=== PATIENT | male | born 1950 | race African-American/Black ===

== ENCOUNTER 2022-03-16 08:14 | Outpatient (CLI) | payer MEDICARE, SELFPAY ==
--- NOTE | ~2022-03-16 | CT_ITS ---
EXAMINATION: CT abdomen pelvis w con DATE: 03/16/2022 08:53 INDICATION: Prostate cancer. TECHNIQUE: Computed tomography (CT) of the abdomen and pelvis was performed with 100 mL Omnipaque 350 intravenous contrast. Automated exposure control and iterative reconstruction technique were employe d. The dose-length product was 324.98 mGy-cm. COMPARISON: None. FINDINGS: The visualized portions of the lung bases demonstrate minimal atelectasis. There are small bilateral posterior diaphragmatic hernias containing fat. No pleural effusion. The heart size is norm al. No pericardial effusion. There are cysts in the liver measuring up to 5 mm. The gallbladder, sple en, pancreas, and adrenal glands are normal. There are cysts in the kidneys measuring up to 4 mm on t he right. There is prominent fat in the inguinal canals that may be hernias. The prostate is moderate ly enlarged. There is diverticulosis of the colon without evidence of diverticulitis. There are no di lated loops of bowel. The appendix is normal. There are no pathologically enlarged lymph nodes. There is no free intraperitoneal fluid. There are subcentimeter nonaggressive lytic lesions with sclerotic margins in the iliac bones, likely benign. There is severe lumbar spondylosis. IMPRESSION: 1. No evidence of metastatic disease. Reviewed, dictated and finalized at location A. T MANAGER
--- NOTE | ~2022-03-16 | NM_ITS ---
EXAMINATION: NM bone scan whole body DATE: 03/16/2022 13:31 INDICATION: Prostate cancer. TECHNIQUE: 23.8 mCi Tc-99m HDP was administered intravenously. Delayed whole-body scintigrams were o btained. COMPARISON: CT abdomen and pelvis 03/16/2022 FINDINGS: There is joint-centered increased activity in the acromioclavicular joints and sternoclavic ular joints, likely osteoarthritis. IMPRESSION: 1. No evidence of metastatic disease. Reviewed, dictated and finalized at location A. TORIAL MANAGER
[2022-03-16 08:49] LABS: Estimated Glomerular Filt Rate > 60
== END 2022-03-16 08:15 | disposition home or self-care (01) ==
PROVIDERS: PCP Internal Medicine; Visit Provider Urology
DX: C61 Malignant neoplasm of prostate (principal)
CPT/HCPCS: 74177; 78306; A9561; Q9967

== ENCOUNTER 2025-03-25 22:41 | Observation (INO) | payer MEDICARE, SELFPAY ==
--- NOTE | ~2025-03-25 | MR_ITS ---
EXAMINATION: Modified brain with and without contrast: DATE: 03/26/2025 INDICATION: 74 year-old with seizure. TECHNIQUE: Axial, coronal and sagittal images including postcontrast images with 10 mL IV contrast were obtained. COMPARISON: CT head without contrast dated 03/26/2025. FINDINGS: No focal areas of acute ischemia on diffusion sequence. No evidence of intracranial bleed on T2*gradient sequence. No evidence of ventriculomegaly or midline shift. Major vascular structures of elim ira of [place] are patent. No abnormal enhancement on postcontrast study. Normal pituitary gland. Inflammatory changes of ethmoid and frontal sinuses and to a lesser degree maxillary sinuses history rule out sinusitis. IMPRESSION: 1. No evidence of acute ischemia, chronic ischemic demyelinating lesions. 2. No abnormal enhancement. No evidence of ventriculomegaly or midline shift. 3. Moderate inflammatory changes of multiple sinuses on both sides. Reviewed, dictated and finalized at location T. RED CAR DRIVER
--- NOTE | ~2025-03-25 | CT_ITS ---
CT HEAD NON-CONTRAST Clinical History: seizures Comparison: None Technique: Unenhanced axial images skull base to vertex Coronal, sagittal reformats CT images acquired with automatic exposure control for dose reduction DLP: 681 mGy-cm Findings: Sulci, ventricles: Unremarkable. No intracerebral hemorrhage. No evidence acute territorial infarct. No mass effect, midline shift. Bony calvarium intact. Visualized paranasal sinuses: Mild maxillary mucosal thickening. Mild ethmoid disease. Mastoid air cells: Clear. IMPRESSION: 1. No acute intracranial findings. Reviewed, dictated and finalized at location R. ER CLEANER
--- NOTE | 2025-03-25 22:42 | ECG_ITS ---
Test Date: 2025-03-25 22:58:38 Measurements Intervals [place] Rate: 70 P: 56 CA: 237 QRS: 6 QRSD: 88 T: 42 QT: 361 QTc: 390 Interpretive Statements SINUS RHYTHM WITH FIRST DEGREE AV BLOCK OTHERWISE NORMAL ECG No previous ECG available for comparison Electronically Signed On 03-26-2025 11:22:43 DELPHI DEVELOPER by Mat Bernal M.D.
[2025-03-25 22:43] VITALS: BP 112/72; PULSE 84; RESP 15; TEMP 36.6; O2SAT 98
--- NOTE | 2025-03-25 23:20 | PC.NURSE ---
Pt informed and aware of urine sample needed and urinal at bedside.
[2025-03-25 23:27] LABS: Hematocrit 45.5 % (42.0-52.0); Hemoglobin 14.6 g/dL (14.0-18.0); Immature Granulocyte Percent A 0.5 % (0-0.5); Lymphocytes Absolute Auto 0.61 K/mm3 (0.9-3.2); Mean Corpuscular HGB Conc 32.1 g/dl (32-36); Mean Corpuscular Hemoglobin 28.2 pg (26-34); Mean Corpuscular Volume 87.8 fl (80-100); Nucleated Red Blood Cells Absolute Auto 0.000 K/mm3 (0.0-0.012); Nucleated Red Blood Cells Perc 0.0 % (0.0-0.2); Platelet Count Result 192 k/mm3 (150-375); Red Blood Count 5.18 M/mm3 (4.6-6.20); White Blood Count 4.4 K/mm3 (4.5-10.0)
[2025-03-25 23:39] LABS: INR 1.1; Partial Thromboplastin Time 25.0 Seconds (22.3-36.8); Prothrombin Time 14.2 Seconds (11.1-14.7)
[2025-03-26] VITALS (10 sets, daily range): BP systolic 97–135; BP diastolic 54–71; PULSE 55–93; RESP 15–20; TEMP 36.6–36.8; O2SAT 98–100; BMI 22.9
[2025-03-26 00:02] LABS: Alanine Aminotransferase 30 U/L (6-50); Albumin Level 3.9 g/dL (3.5-5.1); Alkaline Phosphatase 88 U/L (38-126); Anion Gap 7 mmol/L (4-12); Aspartate Amino Transferase 41 U/L (17-59); Bilirubin,Total 0.6 mg/dL (0.2-1.3); Blood Urea Nitrogen 17 mg/dL (9-20); Calcium 9.7 mg/dL (8.4-10.2); Carbon Dioxide 24 mmol/L (22-30); Chloride 105 mmol/L (98-107); Estimated CRCL calculation 49 ml/min; Estimated Glomerular Filt Rate 54; Glucose 129 mg/dL (65-110); Potassium 3.9 mmol/L (3.4-5.0); Sodium 136 mmol/L (137-145); Total Protein 7.3 g/dL (6.3-8.2)
--- NOTE | 2025-03-26 00:07 | PC.NURSE ---
Pt experienced an estimated 30 second seizure at this time. Tech and RN were present in room and turned pt on side. Pt was suctioned for secretions post-seizure. Seizure pads applied.
[2025-03-26 00:15] LABS: Add Urine Microscopic? YES; Appearance Urine Clear (Clear); Glucose Urine UA Negative (Negative); Leukocyte Esterase Ur Negative LEU/UL (Negative); Need Manual Microscopic Reviewed; Nitrate Urine Negative (Negative); Specific Grav Ur 1.027 (1.001-1.035)
--- NOTE | 2025-03-26 00:25 | ED.AMS ---
HPI - Altered Mental Status General Chief Complaint: Altered Mental Status Stated Complaint: AMS, NOW RESOLVED Time Seen by Provider: 03/26/25 00:09 History of Present Illness HPI narrative: 74-year-old male with history of hypertension and hyperlipidemia presenting to the emergency department today after having a witnessed seizure event. Patient has no history of seizures and no reported recent trauma or injury. No recent illnesses. Patient went to bed and his found him grunting and making odd noises not responding or not waking up. Patient was during his extremities and drooling significantly. EMS found him postictal upon arrival no longer seizing. Patient return to normal consciousness alert oriented x4 but had some garbled speech that also slowly resolved. Patient does not remember what happened. States that he was feeling fine before he went to bed. No recent illnesses fever or chills. Patient denies any complaints at this time. Patient had a subsequent seizure after about 90 minutes here in the emergency that was aborted spontaneously. Patient has had a total of 3 seizures with return of mentation between each episode and each episode did not last more than seconds. Related Data Home Medications ?Medication ?Instructions ?Recorded ?Confirmed ?Last Taken ?Type brimonidine 0.2 % eye drops 1 drp EACH EYE Q8H 03/25/25 03/25/25 Unknown History doxazosin 4 mg tablet (Cardura) 4 mg PO DAILY 03/25/25 03/25/25 Unknown History metoprolol succinate 50 mg 50 mg PO DAILY 03/25/25 03/25/25 Unknown History tablet,extended release 24 hr rosuvastatin 10 mg tablet 10 mg PO DAILY 03/25/25 03/25/25 Unknown History Allergies Allergy/AdvReac Type Severity Reaction Status Date / Time No Known Allergies Allergy Verified 03/25/25 22:53 Review of Systems Review of Systems: As reviewed above in HPI Exam Narrative: GENERAL: [Well-appearing, well-nourished, and in no acute distress.] HEAD: [Normocephalic, atraumatic.] EYES: [PERRLA and EOMI.] ENT: Nares clear, no rhinorrhea or epistaxis. Mucous membranes moist. NECK: Supple. CHEST: [Clear to auscultation. No respiratory distress.] HEART: [Regular rate and rhythm]. No murmur heard. [Normal peripheral pulses.] ABDOMEN: [Soft, nondistended], [nontender], [No rigidity or guarding] EXTREMITIES: Normal range of motion. [No edema.] SKIN: Warm, dry, no rash. NEURO: [No focal deficits]. Alert and oriented [x3.] PSYCH: [Normal mood and affect.] Course Vital Signs Vital signs: Vital Signs Temperature 36.6 C 03/25/25 22:43 Pulse Rate 84 03/25/25 22:43 Respiratory Rate 15 03/25/25 22:43 Blood Pressure 112/72 03/25/25 22:43 Pulse Oximetry 98 03/25/25 22:43 Oxygen Delivery Room Air 03/25/25 22:43 Temperature 36.6 C 03/25/25 22:43 Pulse Rate 93 03/26/25 00:16 Respiratory Rate 17 03/26/25 00:16 Blood Pressure 97/54 L 03/26/25 00:16 Pulse Oximetry 98 03/26/25 00:16 Oxygen Delivery Room Air 03/26/25 00:15 MDM - Altered Mental Status MDM Narrative Medical decision making narrative: 74-year-old male with history of hypertension and hyperlipidemia presenting to the emergency department today after having a witnessed seizure event. Patient has no history of seizures and no reported recent trauma or injury. No recent illnesses. Patient went to bed and his found him grunting and making odd noises not responding or not waking up. Patient was during his extremities and drooling significantly. EMS found him postictal upon arrival no longer seizing. Patient return to normal consciousness alert oriented x4 but had some garbled speech that also slowly resolved. Patient does not remember what happened. States that he was feeling fine before he went to bed. No recent illnesses fever or chills. Patient denies any complaints at this time. Patient had a subsequent seizure after about 90 minutes here in the emergency that was aborted spontaneously. Patient has had a total of 3 seizures with return of mentation between each episode and each episode did not last more than seconds. Patient is hemodynamically stable. Was ambulatory and able to give a urine sample. Had no complaints and then had a visualized seizure which aborted spontaneously. No trauma to the head. Hemodynamically still remained stable but required some suctioning as he was gurgling. Now postictal on withdrawing to pain. CT of the head ordered as well as broad laboratory studies and toxicological screenings. Patient given 4500mg of Keppra IV and 2 of Versed IV. Given a fluid bolus and placed on events solutions consultant with seizure precautions. Suspect potential intracranial pathology such as a mass or bleeding versus electrolyte imbalances versus infection less likely given he is afebrile with no previous recent complaints or infectious symptoms. CT scan returned unremarkable. Patient coming around after his seizure and was able to answer questions. Vital signs remained stable. Laboratory studies unremarkable. Urinalysis unremarkable. This time we have no focal finding to lead towards patient's presentation today with seizure but he does not have status epilepticus given his return to baseline between episodes and no prolonged seizures. Spoke to Dr. Ferris the neurologist who recommended obtaining an EEG and an MRI of the brain with and without contrast and will see the patient during his admission. Spoke to the hospitalist and patient was accepted to the IMU at this time for continued care. Patient did receive large dose of Keppra and Versed but additional as needed Versed ordered p.r.n. if he has additional seizures. Medical Records Attestation: I reviewed the patient's medical records. Lab Data Attestation: I reviewed the patient's lab results. 03/25/25 23:18 03/25/25 23:18 Labs: Lab Results 03/25/25 03/25/25 03/26/25 Range/Units 23:18 23:51 01:31 WBC 4.4 L (4.5-10.0) K/mm3 RBC 5.18 (4.6-6.20) M/mm3 Hgb 14.6 (14.0-18.0) g/dL Hct 45.5 (42.0-52.0) % MCV 87.8 (80-100) fl MCH 28.2 (26-34) pg MCHC 32.1 (32-36) g/dl RDW 13.3 (11.5-14.5) % Plt Count 192 (150-375) k/mm3 MPV 9.8 (7.4-10.4) fl Immature Gran % (Auto) 0.5 (0-0.5) % Neut % (Auto) 75.4 H (45.5-73.1) % Lymph % (Auto) 14.0 L (18.3-44.2) % Bibb % (Auto) 7.8 (2.6-8.5) % Eos % (Auto) 1.4 (0-4.4) % Baso % (Auto) 0.9 (0.2-1.2) % Lymph # (Auto) 0.61 L (0.9-3.2) K/mm3 Bibb # (Auto) 0.3 (0.1-0.6) K/mm3 Eos # (Auto) 0.1 (0-0.3) K/mm3 Baso # (Auto) 0.0 (0.0-0.1) K/mm3 Abs Immat Gran (auto) 0.02 (0.00-0.031) K/mm3 Absolute Neuts (auto) 3.3 (1.3-6.7) K/mm3 Absolute Nucleated RBC 0.000 (0.0-0.012) K/mm3 Nucleated RBC % 0.0 (0.0-0.2) % PT 14.2 (11.1-14.7) Seconds INR 1.1 APTT 25.0 (22.3-36.8) Seconds Sodium 136 L (137-145) mmol/L Potassium 3.9 (3.4-5.0) mmol/L Chloride 105 (98-107) mmol/L Carbon Dioxide 24 (22-30) mmol/L Anion Gap 7 (4-12) mmol/L BUN 17 (9-20) mg/dL Creatinine 1.30 (0.7-1.3) mg/dL Estim Creat Clear Calc 49 ml/min Estimated GFR 54 L (59 - ) Glucose 129 H (65-110) mg/dL Lactic Acid 2.3 H (0.7-2.0) mmol/L Calcium 9.7 (8.4-10.2) mg/dL Total Bilirubin 0.6 (0.2-1.3) mg/dL AST 41 (17-59) U/L ALT 30 (6-50) U/L Alkaline Phosphatase 88 (38-126) U/L Total Protein 7.3 (6.3-8.2) g/dL Albumin 3.9 (3.5-5.1) g/dL Urine Color Yellow (Yellow) Urine Appearance Clear (Clear) Urine pH 5.5 (5.0-9.0) Ur Specific [place] 1.027 (1.001-1.035) Urine Protein 2+ H (Negative) mg/dL Urine Glucose (UA) Negative (Negative) mg/dL Urine Ketones Trace H (Negative) mg/dL Ur Blood (Man) Negative (Negative) Urine Nitrate Negative (Negative) Urine Bilirubin Negative (Negative) Urine Urobilinogen 1.0 (<2.0) mg/dL Add Ur Microanalysis Reviewed Leukocyte Esterase Rfl Negative (Negative) JENNIFER/UL Urine RBC 6-10 H (0-2) /hpf Urine WBC 0-5 (0-3) /hpf Ur Squamous Epith Cells Occasional (Few) /hpf Urine Bacteria None seen /hpf Urine Casts 11-20 Hyaline Casts Present (None) /lpf Salicylates < 1.0 L (2-20) mg/dL Urine Opiates Screen Negative (Negative) Urine Methadone Screen Negative (Negative) Acetaminophen < 10 L (10-30) ug/mL Ur Barbiturates Screen Negative (Negative) Ur Phencyclidine Scrn Negative (Negative) Ur Amphetamine Screen Negative (Negative) U Benzodiazepines Scrn Negative (Negative) Urine Cocaine Screen Negative (Negative) U Cannabinoids Screen Negative (Negative) Ethyl Alcohol < 10 (<10) mg/dL Imaging Data Attestation: I personally reviewed and interpreted this imaging study as follows: My impression: CT of the head unremarkable. Critical Care Time Critical Care Time Critical Care Time: Yes Total Critical Care Time: 35 Discharge Plan Discharge Clinical Impression: First time seizure, Altered mental status Patient Disposition: Still a Patient Condition: Stable
[2025-03-26 00:30] LABS: Acetaminophen < 10 ug/mL (10-30); Salicylate < 1.0 mg/dL (2-20)
[2025-03-26] MEDS: levETIRAcetam 1500MG/NACL100ML 1,500 MG/100 ML BAG 600 MG IVPB ×3 (00:41→00:42)
--- NOTE | 2025-03-26 00:42 | PC.NURSE ---
PCP verbally ordered keppra bags to be rapidly given by squeezing bags.
[2025-03-26] MEDS: SODIUM CHLORIDE 0.9% IV 1,000 ML 999 ML (00:43)
[2025-03-26] MEDS: MIDAZOLAM HCL (*CRX) 2 MG/2 ML VIAL IV PUSH (00:43)
[2025-03-26 00:46] LABS: Cannabinoid Screen Urine Negative (Negative)
--- OUTSIDE RECORDS SUMMARY | 2025-03-26 00:46 | XMS_ITS | Data Portability ---
Author Organization [facility] [place] [facility] [employer] Address [address] [address] Care Team Providers Care Veterinary Bacteriologist Name Role Phone LEENA PHAN Communications Planner Assessment Encounter Date Assessment Date Assessment LastModified by Organization Details LastModified Time 10/15/2022 10/15/2022 Patient presente d for follow up. Studies ordered as below. Discussed plan with patient/caregiver , who expressed understanding. Follow up as noted below. [email or web address] Not available 10/15/2022 11:55:44 11/01/2023 11/01/2023 Patient presente d for follow up. Studies ordered as below. Discussed plan with patient/caregiver , who expressed understanding. Follow up as noted below. [email or web address] Not available 11/01/2023 09:18:37 05/08/2024 05/08/2024 Recommends healthy nutrition, including a diet rich in fruits and vegetables, minimizing simple carbohydrates, salt, and saturated fats. Encouraged regular cardiovascular exercise such as walking at least 30 minutes daily, 5 times per week. Emphasized preventive health measures and educated pt on fall prevention and community-based lifestyle interventions to help reduce health risks and promote healthy living. Not available 05/08/2024 10:08:31 11/05/2024 11/05/2024 Recommends healthy nutrition, including a diet rich in fruits and vegetables, minimizing simple carbohydrates, salt, and saturated fats. Encouraged regular cardiovascular exercise such as walking at least 30 minutes daily, 5 times per week. Emphasized preventive health measures and educated pt on fall prevention and community-based lifestyle interventions to help reduce health risks and promote healthy living. Not available 11/05/2024 09:48:26 Plan of Treatment Reminders Order Date Submit Date Provider Last Modified By Organization Details Last Modified Time Details Appointments ESTABLISH ED PATIENT 15 2025 09:30A Anish Yi MD Not available Not available Not available Lab microalbu min/creat inine, mass ratio, urine 2024 025 [facility], [address], [place], [address], 11/05/2024 09:55:54 lipid panel, serum 2024 025 [facility], [address], [place], [address], 11/05/2024 09:55:54 CMP, serum or plasma 2024 025 [facility], [address], [place], [address], 11/05/2024 09:55:54 microalbu min/creat inine, mass ratio, urine 2024 025 [facility], [address], [place], [address], 10/23/2024 04:29:44 lipid panel, serum 2024 025 [facility], [address], [place], [address], 10/23/2024 04:29:44 CMP, serum or plasma 2024 025 [facility], [address], [place], [address], 10/23/2024 04:29:45 microalbu min/creat inine, mass ratio, urine 2023 024 [facility] [email or web address] [facility], [address], [place], [address], 04/23/2024 11:54:56 lipid panel, serum 2023 024 [facility], [address], [place], [address], 04/23/2024 11:54:54 CMP, serum or plasma 2023 024 [facility], [address], [place], [address], 04/23/2024 11:54:58 HbA1c (hemoglob in A1c), blood 2022 023 [facility], [address], [place], [address], 05/03/2023 08:10:18 lipid panel, serum 2022 023 [employer] [facility], [address], [place], [address], 05/03/2023 08:10:18 CMP, serum or plasma 2022 023 [employer] [facility], [address], [place], [address], 05/03/2023 08:10:18 Referral None recorded. Procedures None recorded. Surgeries None recorded. Imaging None recorded. Medication Orders metoprolo l succinate ER 50 mg tablet,ex tended release 24 hr 2024 025 [id number], [address], [place], [address], 11/05/2024 09:55:56 doxazosin 4 mg tablet 2024 025 [facility], [address], [place], [address], 11/05/2024 09:55:57 rosuvasta tin 10 mg tablet 2024 025 [facility] [address], [address] , [place], [address], 11/05/2024 09:55:57 metoprolo l succinate ER 50 mg tablet,ex tended release 24 hr 2024 025 [facility] [address] [facility], [address] , [place], [address], 05/08/2024 10:23:46 doxazosin 4 mg tablet 2024 025 [facility] [address], [address], [place], [address], 05/08/2024 10:23:46 rosuvasta tin 10 mg tablet 2024 025 [facility] [id number] [facility], [address] , [place], [address], 05/08/2024 10:23:46 rosuvasta tin 10 mg tablet 2023 024 [id number], [address], [place], [address], 11/01/2023 09:36:07 Patient TargetsNo targets recorded. Patient Instructions Encounter Date Encounter Id Patient Instructions Last Modified By Organization Details Last Modified Time 04/26/2023 [id number] advance care planning: care instructions [facility] Not available 04/26/2023 09:40:00 medicare preventive services guide Not available 04/26/2023 09:40:00 advance care planning: care instructions [facility] Not available 04/26/2023 09:40:00 Discussed and explained advance directives such as standard forms to the . Face to face discussion lasted for a duration of ___ minutes. Not available 04/26/2023 09:27:36 11/01/2023 [id number] advance care planning: care instructions Not available 11/01/2023 09:36:04 05/08/2024 [id number] advance care planning: care instructions [facility] Not available 05/08/2024 10:23:43 medicare preventive services guide Not available 05/08/2024 10:23:43 advance care planning: care instructions [facility] Not available 05/08/2024 10:23:43 Discussed and explained advance directives such as standard forms to the . Face to face discussion lasted for a duration of ___ minutes. Not available 05/08/2024 10:04:36 11/05/2024 [id number] advance care planning: care instructions [facility] Not available 11/05/2024 09:55:54 Reason for Referral None Reported. Results Created Date Observation Date Name Description Value Unit Range Abnormal Flag Note LastModifiedBy Organization Detail LastModifiedTime 10/09/1910/09/2022 LIPID PANEL , [place] cholesterol, total 142 mg/dL <200 normal Not Available [facility] [address], [address], 10/09/2022 02:16:38 10/09/1910/09/2022 LIPID PANEL , [place] HDL cholesterol 61 mg/dL > or = 40 normal Not Available [facility] [address], [address], 10/09/2022 02:16:38 10/09/1910/09/2022 LIPID PANEL , [place] triglyceride s 89 mg/dL <150 normal Not Available [facility] [address], [address], 10/09/2022 02:16:38 10/09/1910/09/2022 LIPID PANEL , [place] LDL-choleste rol 64 mg/dL _(nicol c) normal Refer ence range : <100 Sania able range <100 mg/dL for prima ry preve ntion ; <70 mg/dL for patie nts with CHD or diabe tic patie nts with > or = 2 CHD risk facto rs. LDL-C is now calcu lated using the Tata n-Hop kins nandini guerrero n, which is a valid ated novel metho d provi ding nisha r accur acy than the Fried igor equat ion in the estim ation of LDL-C . Tata n SS et al. SAM. 2013; 310(4 9): 2061- 2068 (http ://ed ucati on.Qu Faith chelyZappedy. com/f aq/FA Q164) Not Available [address], [address], 10/09/2022 02:16:38 10/09/19 23 10/09/2022 LIPID PANEL , [place] chol/HDLC ratio 2.3 (calc ) <5.0 normal Not Available [address], [address], 10/09/2022 02:16:38 10/09/19 23 10/09/2022 LIPID PANEL , [place] non HDL cholesterol 81 mg/dL _(nicol c) <130 normal For patie nts with diabe nela plus 1 major ASCVD risk facto r, treat ing to a non-H DL-C goal of <100 mg/dL (LDL- C of <70 mg/dL ) is consi milind carranza n. Not Available [address], [address], 10/09/2022 02:16:38 10/09/19 23 10/09/2022 COMPR EHENS PEDRO METAB OLIC PANEL (REFL ) glucose 94 mg/dL 65-99 normal Fasti ng refer ence inter kristin Not Available [address], [address], 10/09/2022 02:16:42 10/09/19 23 10/09/2022 COMPR EHENS PEDRO METAB OLIC PANEL (REFL ) urea nitrogen (BUN) 14 mg/dL 7-25 normal Not Available [address] [address] [place], [address], 10/09/2022 02:16:42 10/09/19 23 10/09/2022 COMPR EHENS PEDRO METAB OLIC PANEL (REFL ) creatinine 0.97 mg/dL 0.70-1 .28 normal Not Available [address], [address], 10/09/2022 02:16:42 10/09/19 23 10/09/2022 COMPR EHENS PEDRO METAB OLIC PANEL (REFL ) eGFR 83 mL/mi n/1.7 3m2 > or = 60 normal The eGFR is based on the CKD-E PI 2020 equat ion. To calcu late the new eGFR from a previ ous Creat inine or Cysta tin C resul t, go to https ://jaclyn feliciano.nika ramsay/jose luis anton s/ kdoqi /gfr% 5Fcal culat or Not Available [address], [address], 10/09/2022 02:16:42 10/09/19 23 10/09/2022 COMPR EHENS PEDRO METAB OLIC PANEL (REFL ) BUN/creatini ne ratio NOT APPLIC ABLE (calc ) 6-22 Not Available [address], [address], 10/09/2022 02:16:42 10/09/19 23 10/09/2022 COMPR EHENS PEDRO METAB OLIC PANEL (REFL ) sodium 137 mmol/ L 135-14 6 normal Not Available [address], [address], 10/09/2022 02:16:42 10/09/19 23 10/09/2022 COMPR EHENS PEDRO METAB OLIC PANEL (REFL ) potassium 4.3 mmol/ L 3.5-5. 3 normal Not Available [address], [address], 10/09/2022 02:16:42 10/09/19 23 10/09/2022 COMPR EHENS PEDRO METAB OLIC PANEL (REFL ) chloride 104 mmol/ L 98-110 normal Not Available [facility] [address] [address], [place], [address], 10/09/2022 02:16:42 10/09/19 23 10/09/2022 COMPR EHENS PEDRO METAB OLIC PANEL (REFL ) carbon dioxide 23 mmol/ L 20-32 normal Not Available [address], [address], 10/09/2022 02:16:42 10/09/19 23 10/09/2022 COMPR EHENS PEDRO METAB OLIC PANEL (REFL ) calcium 9.9 mg/dL 8.6-10 .3 normal Not Available [address], [address], 10/09/2022 02:16:42 10/09/19 23 10/09/2022 COMPR EHENS PEDRO METAB OLIC PANEL (REFL ) protein, total 7.4 g/dL 6.1-8. 1 normal Not Available [address], [address], 10/09/2022 02:16:42 10/09/19 23 10/09/2022 COMPR EHENS PEDRO METAB OLIC PANEL (REFL ) albumin 4.2 g/dL 3.6-5. 1 normal Not Available [address], [address], 10/09/2022 02:16:42 10/09/19 23 10/09/2022 COMPR EHENS PEDRO METAB OLIC PANEL (REFL ) globulin 3.2 g/dL_ (calc ) 1.9-3. 7 normal Not Available [address], [address], 10/09/2022 02:16:42 10/09/19 23 10/09/2022 COMPR EHENS PEDRO METAB OLIC PANEL (REFL ) albumin/glob ulin ratio 1.3 (calc ) 1.0-2. 5 normal Not Available [address], [address], 10/09/2022 02:16:42 10/09/19 23 10/09/2022 COMPR EHENS PEDRO METAB OLIC PANEL (REFL ) bilirubin, total 1.6 mg/dL 0.2-1. 2 high Not Available [address], [address], 10/09/2022 02:16:42 10/09/19 23 10/09/2022 COMPR EHENS PEDRO METAB OLIC PANEL (REFL ) alkaline phosphatase 68 U/L 35-144 normal Not Available [facility] [address], [address], 10/09/2022 02:16:42 10/09/19 23 10/09/2022 COMPR EHENS PEDRO METAB OLIC PANEL (REFL ) AST 24 U/L 10-35 normal Not Available [address], [address], 10/09/2022 02:16:42 10/09/19 23 10/09/2022 COMPR EHENS PEDRO METAB OLIC PANEL (REFL ) ALT 20 U/L 9-46 normal Not Available [address], [address], 10/09/2022 02:16:42 10/09/1910/09/2022 HEMOG LOBIN A1C hemoglobin A1C 5.1 %_of_ total _HGB <5.7 normal For the purpo se of scresohan huang for the prese nce of diabe nela: <5.7% Consi stent with the absen ce of diabe nela 5.7-6 .4% Consi stent with incre ased risk for diabe nela (pred iabet es) > or =6.5% Consi stent with diabe nela This assay resul t is consi stent with a decre ased risk of diabe nela. Curre ntly, no conse nsus exist s regar ding use of hemog lobin A1c for diagn osis of diabe nela in child luis. Accor ding to Ameri can Diabe nela Assoc iatio n (ADA) guide lines , hemog lobin A1c <7.0% repre sents optim al contr ol in non-p regna nt diabe tic patie nts. Diffe rent metri cs may apply to speci fic patie nt popul ation s. [facility] of Medic al Care in Diabe nela(A DA). Not Available [address] [address] [place], [address], 10/09/2022 02:16:43 10/09/19 23 10/09/2022 ALBUM IN, RANDO M URINE W/CRE ATINI NE creatinine, random urine 21 mg/dL 20-320 normal Not Available [address] [address] [address], [place], [address], 10/09/2022 12:30:32 10/09/19 23 10/09/2022 ALBUM IN, RANDO M URINE W/CRE ATINI NE albumin, urine 0.2 mg/dL see note: normal Refer ence Range : Refer ence Range Not estab lishe d Not Available [address] , [place], [address], 10/09/2022 12:30:32 10/09/19 23 10/09/2022 ALBUM IN, RANDO M URINE W/CRE ATINI NE albumin/crea tinine ratio, random urine 10 mcg/m g_cre at <30 normal The ADA defin es abnor malit ies in album in excre tion as follo ws: Album inuri a Categ ory Resul t (mcg/ mg creat inine ) Maricarmen l to Mildl y incre ased <30 Moder ately incre ased 30-29 9 Sever pablito incre ased > OR = 300 The ADA recom mends that at least two of three speci mens colle cted withi n a 3-6 month perio d be abnor mal befor e consi helena g a patie nt to be withi n a diagn ostic categ ory. Not Available [address] [address] [place], [address], 10/09/2022 12:30:32 10/21/19 24 10/21/2023 LIPID PANEL , [place] cholesterol, total 145 mg/dL <200 normal Not Available [facility] [address] [address] [place], [address], 10/22/2023 00:28:33 10/21/19 24 10/21/2023 LIPID PANEL , [place] HDL cholesterol 54 mg/dL > or = 40 normal Not Available [facility] [address] [address] [place], [address], 10/22/2023 00:28:33 10/21/19 24 10/21/2023 LIPID PANEL , [place] triglyceride s 73 mg/dL <150 normal Not Available [facility] [address] [address] [place], [address], 10/22/2023 00:28:33 10/21/19 24 10/21/2023 LIPID PANEL , [place] LDL-choleste rol 76 mg/dL _(nicol c) normal Refer ence range : <100 Sania able range <100 mg/dL for prima ry preve ntion ; <70 mg/dL for patie nts with CHD or diabe tic patie nts with > or = 2 CHD risk facto rs. LDL-C is now calcu lated using the Tata pugh-Hop kins nandini guerrero n, which is a valid ated novel declano d romel cameron r accur acy than the Fried igor equat ion in the estim ation of LDL-C . Tata pugh SS et al. SAM. 2013; 310(1 9): 2061- 2068 (http ://ed ucati on.Qu Faith colungas. com/f aq/FA Q164) Not Available [facility] [address] [address] [place], [address], 10/22/2023 00:28:33 10/21/19 24 10/21/2023 LIPID PANEL , [place] chol/HDLC ratio 2.7 (calc ) <5.0 normal Not Available [address], [address], 10/22/2023 00:28:33 10/21/19 24 10/21/2023 LIPID PANEL , [place] non HDL cholesterol 91 mg/dL _(nicol c) <130 normal For patie nts with diabe nela plus 1 major ASCVD risk facto r, treat ing to a non-H DL-C goal of <100 mg/dL (LDL- C of <70 mg/dL ) is consi dered a thera peuti c optio n. Not Available [address], [address], 10/22/2023 00:28:33 10/21/19 24 10/21/2023 COMPR EHENS PEDRO METAB OLIC PANEL glucose 83 mg/dL 65-99 normal Fasti ng refer ence inter kristin Not Available [address], [address], 10/22/2023 00:28:35 10/21/19 24 10/21/2023 COMPR EHENS PEDRO METAB OLIC PANEL urea nitrogen (BUN) 11 mg/dL 7-25 normal Not Available [address], [address], 10/22/2023 00:28:35 10/21/19 24 10/21/2023 COMPR EHENS PEDRO METAB OLIC PANEL creatinine 1.03 mg/dL 0.70-1 .28 normal Not Available [address], [address], 10/22/2023 00:28:35 10/21/19 24 10/21/2023 COMPR EHENS PEDRO METAB OLIC PANEL eGFR 77 mL/mi n/1.7 3m2 > or = 60 normal Not Available [facility] [place], [address], 10/22/2023 00:28:35 10/21/19 24 10/21/2023 COMPR EHENS PEDRO METAB OLIC PANEL BUN/creatini ne ratio SEE NOTE: (calc ) 6-22 Not Repor karsten: BUN and Creat inine are withi n refer ence range . Not Available [address], [address], 10/22/2023 00:28:35 10/21/19 24 10/21/2023 COMPR EHENS PEDRO METAB OLIC PANEL sodium 135 mmol/ L 135-14 6 normal Not Available [address], [address], 10/22/2023 00:28:35 10/21/19 24 10/21/2023 COMPR EHENS PEDRO METAB OLIC PANEL potassium 4.5 mmol/ L 3.5-5. 3 normal Not Available [address], [address], 10/22/2023 00:28:35 10/21/19 24 10/21/2023 COMPR EHENS PEDRO METAB OLIC PANEL chloride 102 mmol/ L 98-110 normal Not Available [address], [address], 10/22/2023 00:28:35 10/21/19 24 10/21/2023 COMPR EHENS PEDRO METAB OLIC PANEL carbon dioxide 27 mmol/ L 20-32 normal Not Available [address], [address], 10/22/2023 00:28:35 10/21/19 24 10/21/2023 COMPR EHENS PEDRO METAB OLIC PANEL calcium 9.8 mg/dL 8.6-10 .3 normal Not Available [address], [address], 10/22/2023 00:28:35 10/21/19 24 10/21/2023 COMPR EHENS PEDRO METAB OLIC PANEL protein, total 6.9 g/dL 6.1-8. 1 normal Not Available [address], [address], 10/22/2023 00:28:35 10/21/19 24 10/21/2023 COMPR EHENS PEDRO METAB OLIC PANEL albumin 4.0 g/dL 3.6-5. 1 normal Not Available [address], [address], 10/22/2023 00:28:35 10/21/19 24 10/21/2023 COMPR EHENS PEDRO METAB OLIC PANEL globulin 2.9 g/dL_ (calc ) 1.9-3. 7 normal Not Available [address], [address], 10/22/2023 00:28:35 10/21/19 24 10/21/2023 COMPR EHENS PEDRO METAB OLIC PANEL albumin/glob ulin ratio 1.4 (calc ) 1.0-2. 5 normal Not Available [address], [address], 10/22/2023 00:28:35 10/21/19 24 10/21/2023 COMPR EHENS PEDRO METAB OLIC PANEL bilirubin, total 1.3 mg/dL 0.2-1. 2 high Not Available [address], [address], 10/22/2023 00:28:35 10/21/19 24 10/21/2023 COMPR EHENS PEDRO METAB OLIC PANEL alkaline phosphatase 58 U/L 35-144 normal Not Available [facility] [address], [address], 10/22/2023 00:28:35 10/21/19 24 10/21/2023 COMPR EHENS PEDRO METAB OLIC PANEL AST 26 U/L 10-35 normal Not Available [facility] [address], [place], [address], 10/22/2023 00:28:35 10/21/19 24 10/21/2023 COMPR EHENS PEDRO METAB OLIC PANEL ALT 25 U/L 9-46 normal Not Available [facility] [address] [place], [address], 10/22/2023 00:28:35 10/21/19 24 10/21/2023 HEMOG LOBIN A1C hemoglobin A1C 5.6 %_of_ total _HGB <5.7 normal For the purpo se of scree sal for the prese nce of diabe nela: <5.7% Consi stent with the absen ce of diabe nela 5.7-6 .4% Consi stent with incre ased risk for diabe nela (pred iabet es) > or =6.5% Consi stent with diabe nela This assay resul t is consi stent with a decre ased risk of diabe nela. Curre ntly, no conse nsus exist s gayle peter use of hemog lobin A1c for diagn osis of diabe nela in child luis. Accor ding to Ameri can Diabe nela Assoc iatio n (ADA) guide lines , hemog lobin A1c <7.0% repre sents optim al contr ol in non-p regna nt diabe tic patie nts. Diffe rent metri cs may apply to speci fic patie nt popul ation s. Stand ards of Medic al Care in Diabe nela(A DA). This test was perfo rmed on the Shailesh rashid c503 platf orm. Effec tive , a alcon parry in test platf orms from the [facility] t[facility] to the Shailesh rashid c503 may have shift ed HbA1c resul ts kaiden red to histo rical resul ts. Based on labor atory valid ation testi ng condu cted at [facility] , the Shailesh platf orm relat pedro to the [facility] platf orm had an avera ge incre ase in HbA1c value of < or = 0.3%. This diffe rence is withi n accep karsten varia bilit y estab lishe d by the Rosmery morris [employer] hemog lobin Stand ardiz ation Progr am. Note that not all indiv idual s will have had a shift in their resul ts and direc t kaiden rison s betwe en histo rical and curre nt resul ts for testi ng condu cted on diffe rent platf orms is not recom madiha d. Not Available [facility] [address] [address] [place], [address], 10/22/2023 00:28:35 04/22/20 24 04/23/2024 LIPID PANEL , [place] cholesterol, total 124 mg/dL <200 normal Not Available [facility] [address] [address] [place], [address], 04/23/2024 11:54:54 04/22/20 24 04/23/2024 LIPID PANEL , [place] HDL cholesterol 54 mg/dL > or = 40 normal Not Available [facility] [address] [address] [place], [address], 04/23/2024 11:54:54 04/22/20 24 04/23/2024 LIPID PANEL , [place] triglyceride s 62 mg/dL <150 normal Not Available [facility] [address] [address] [place], [address], 04/23/2024 11:54:54 04/22/20 24 04/23/2024 LIPID PANEL , [place] LDL-choleste rol 56 mg/dL _(nicol c) normal Refer ence range : <100 Sania able range <100 mg/dL for prima ry preve ntion ; <70 mg/dL for patie nts with CHD or diabe tic patie nts with > or = 2 CHD risk facto rs. LDL-C is now calcu lated using the Tata n-Hop kins calcu yolanda n, which is a valid ated novel metho d provi ding nisha r accur acy than the Fried igor equat ion in the estim ation of LDL-C . [employer] pugh SS et al. SAM. 2013; 310(1 9): 2061- 2068 (http ://ed ucati on.Eltechs Faith moZappedy. com/f aq/FA Q164) Not Available [address], [address], 04/23/2024 11:54:54 04/22/20 24 04/23/2024 LIPID PANEL , [place] chol/HDLC ratio 2.3 (calc ) <5.0 normal Not Available [address], [address], 04/23/2024 11:54:54 04/22/20 24 04/23/2024 LIPID PANEL , [place] non HDL cholesterol 70 mg/dL _(nicol c) <130 normal For patie nts with diabe nela plus 1 major ASCVD risk facto r, treat ing to a non-H DL-C goal of <100 mg/dL (LDL- C of <70 mg/dL ) is consi dered a thera peuti c optio n. Not Available [address], [address], 04/23/2024 11:54:54 04/22/20 24 04/23/2024 ALBUM IN, RANDO M URINE W/CRE ATINI NE creatinine, random urine 121 mg/dL 20-320 normal Not Available [address] [address] [place], [address], 04/23/2024 11:54:56 04/22/20 24 04/23/2024 ALBUM IN, RANDO M URINE W/CRE ATINI NE albumin, urine 0.5 mg/dL see note: normal Refer ence Range : Refer ence Range Not estab lishe d Not Available [address] [address] [place], [address], 04/23/2024 11:54:56 04/22/20 24 04/23/2024 ALBUM IN, RANDO M URINE W/CRE ATINI NE albumin/crea tinine ratio, random urine 4 mg/g_ creat <30 normal The ADA defin es abnor malit ies in album in excre tion as follo ws: Album inuri a Categ ory Resul t (mg/g creat inine ) Maricarmen l to Mildl y incre ased <30 Moder ately incre ased 30-29 9 Sever pablito incre ased > OR = 300 The ADA recom mends that at least two of three speci mens colle cted withi n a 3-6 month perio d be abnor mal befor e consi helena g a patie nt to be withi n a diagn ostic categ ory. Not Available [address] [place], [address], 04/23/2024 11:54:56 04/22/20 24 04/23/2024 COMPR EHENS PEDRO METAB OLIC PANEL glucose 91 mg/dL 65-99 normal Fasti ng refer ence inter kristin Not Available [address] [place], [address], 04/23/2024 11:54:58 04/22/20 24 04/23/2024 COMPR EHENS PEDRO METAB OLIC PANEL urea nitrogen (BUN) 15 mg/dL 7-25 normal Not Available [address] [place], [address], 04/23/2024 11:54:58 04/22/20 24 04/23/2024 COMPR EHENS PEDRO METAB OLIC PANEL creatinine 1.06 mg/dL 0.70-1 .28 normal Not Available [facility] [address] [address] [place], [address], 04/23/2024 11:54:58 04/22/20 24 04/23/2024 COMPR EHENS PEDRO METAB OLIC PANEL eGFR 74 mL/mi n/1.7 3m2 > or = 60 normal Not Available [facility] [address] [address] [place], [address], 04/23/2024 11:54:58 12/18/20 24 04/23/2024 COMPR EHENS PEDRO METAB OLIC PANEL BUN/creatini ne ratio SEE NOTE: (calc ) 6-22 Not Repor karsten: BUN and Creat inine are withi n refer ence range . Not Available [address], [address], 04/23/2024 11:54:58 04/22/20 24 04/23/2024 COMPR EHENS PEDRO METAB OLIC PANEL sodium 135 mmol/ L 135-14 6 normal Not Available [address], [address], 04/23/2024 11:54:58 04/22/20 24 04/23/2024 COMPR EHENS PEDRO METAB OLIC PANEL potassium 4.5 mmol/ L 3.5-5. 3 normal Not Available [address], [address], 04/23/2024 11:54:58 04/22/20 24 04/23/2024 COMPR EHENS PEDRO METAB OLIC PANEL chloride 102 mmol/ L 98-110 normal Not Available [address], [address], 04/23/2024 11:54:58 04/22/20 24 04/23/2024 COMPR EHENS PEDRO METAB OLIC PANEL carbon dioxide 27 mmol/ L 20-32 normal Not Available [address], [address], 04/23/2024 11:54:58 04/22/20 24 04/23/2024 COMPR EHENS PEDRO METAB OLIC PANEL calcium 9.6 mg/dL 8.6-10 .3 normal Not Available [address], [address], 04/23/2024 11:54:58 04/22/20 24 04/23/2024 COMPR EHENS PEDRO METAB OLIC PANEL protein, total 6.4 g/dL 6.1-8. 1 normal Not Available [address], [address], 04/23/2024 11:54:58 04/22/20 24 04/23/2024 COMPR EHENS PEDRO METAB OLIC PANEL albumin 3.8 g/dL 3.6-5. 1 normal Not Available [address], [address], 04/23/2024 11:54:58 04/22/20 24 04/23/2024 COMPR EHENS PEDRO METAB OLIC PANEL globulin 2.6 g/dL_ (calc ) 1.9-3. 7 normal Not Available [address], [address], 04/23/2024 11:54:58 04/22/20 24 04/23/2024 COMPR EHENS PEDRO METAB OLIC PANEL albumin/glob ulin ratio 1.5 (calc ) 1.0-2. 5 normal Not Available [address], [address], 04/23/2024 11:54:58 04/22/20 24 04/23/2024 COMPR EHENS PEDRO METAB OLIC PANEL bilirubin, total 1.1 mg/dL 0.2-1. 2 normal Not Available [address], [address], 04/23/2024 11:54:58 04/22/20 24 04/23/2024 COMPR EHENS PEDRO METAB OLIC PANEL alkaline phosphatase 52 U/L 35-144 normal Not Available [facility] [address], [address], 04/23/2024 11:54:58 04/22/20 24 04/23/2024 COMPR EHENS PEDRO METAB OLIC PANEL AST 27 U/L 10-35 normal Not Available [address], [address], 04/23/2024 11:54:58 04/22/20 24 04/23/2024 COMPR EHENS PEDRO METAB OLIC PANEL ALT 23 U/L 9-46 normal Not Available [address], [address], 04/23/2024 11:54:58 10/23/19 25 10/23/2024 LIPID PANEL , [place] cholesterol, total 124 mg/dL <200 normal Not Available [address], [address], 10/23/2024 04:29:43 10/23/19 25 10/23/2024 LIPID PANEL , [place] HDL cholesterol 53 mg/dL > or = 40 normal Not Available [address], [address], 10/23/2024 04:29:43 10/23/19 25 10/23/2024 LIPID PANEL , [place] triglyceride s 59 mg/dL <150 normal Not Available [address], [address], 10/23/2024 04:29:43 10/23/19 25 10/23/2024 LIPID PANEL , [place] LDL-choleste rol 57 mg/dL _(nicol c) normal Refer ence range : <100 Sania able range <100 mg/dL for prima ry preve ntion ; <70 mg/dL for patie nts with CHD or diabe tic patie nts with > or = 2 CHD risk facto rs. LDL-C is now calcu lated using the [employer] n[employer]Hop kins nandini guerrero n, which is a valid ated novel crystal rivas than the Fried igor equat ion in the estim ation of LDL-C . [employer] pugh SS et al. SAM. 2013; 310(1 9): 2061- 2068 (http ://ed ucati on.Qu estDi Cortexymes. com/f aq/FA Q164) Not Available [facility] [address] [place], [address], 10/23/2024 04:29:43 10/23/19 25 10/23/2024 LIPID PANEL , [place] chol/HDLC ratio 2.3 (calc ) <5.0 normal Not Available [address], [address], 10/23/2024 04:29:43 10/23/19 25 10/23/2024 LIPID PANEL , [place] non HDL cholesterol 71 mg/dL _(nicol c) <130 normal For patie nts with diabe nela plus 1 major ASCVD risk facto r, treat ing to a non-H DL-C goal of <100 mg/dL (LDL- C of <70 mg/dL ) is consi kevind a ifrah brambila c optio n. Not Available [address], [address], 10/23/2024 04:29:43 10/23/19 25 10/23/2024 ALBUM IN, RANDO M URINE W/CRE ATINI NE creatinine, random urine 185 mg/dL 20-320 normal Not Available [address], [address], 10/23/2024 04:29:44 10/23/19 25 10/23/2024 ALBUM IN, RANDO M URINE W/CRE ATINI NE albumin, urine 0.4 mg/dL see note: normal Refer ence Range : Refer ence Range Not estab lishe d Not Available [address], [address], 10/23/2024 04:29:44 10/23/19 25 10/23/2024 ALBUM IN, RANDO M URINE W/CRE ATINI NE albumin/crea tinine ratio, random urine 2 mg/g_ creat <30 normal The ADA defin es abnor malit ies in album in excre tion as follo ws: Album inuri a Categ ory Resul t (mg/g creat inine ) Maricarmen l to Mildl y incre ased <30 Moder ately incre ased 30-29 9 Sever pablito incre ased > OR = 300 The ADA recom mends that at least two of three speci mens colle cted withi n a 3-6 month perio d be abnor mal befor e consi helena g a patie nt to be withi n a diagn ostic categ ory. Not Available [facility] [address] [place], [address], 10/23/2024 04:29:44 10/23/19 25 10/23/2024 COMPR EHENS PEDRO METAB OLIC PANEL glucose 84 mg/dL 65-99 normal Fasti ng refer ence inter kristin Not Available [address], [address], 10/23/2024 04:29:45 10/23/19 25 10/23/2024 COMPR EHENS PEDRO METAB OLIC PANEL urea nitrogen (BUN) 14 mg/dL 7-25 normal Not Available [address], [address], 10/23/2024 04:29:45 10/23/19 25 10/23/2024 COMPR EHENS PEDRO METAB OLIC PANEL creatinine 1.12 mg/dL 0.70-1 .28 normal Not Available [address], [address], 10/23/2024 04:29:45 10/23/19 25 10/23/2024 COMPR EHENS PEDRO METAB OLIC PANEL eGFR 69 mL/mi n/1.7 3m2 > or = 60 normal Not Available [facility] [address], [address], 10/23/2024 04:29:45 10/23/19 25 10/23/2024 COMPR EHENS PEDRO METAB OLIC PANEL BUN/creatini ne ratio SEE NOTE: (calc ) 6-22 Not Repor karsten: BUN and Creat inine are withi n refer ence range . Not Available [address], [address], 10/23/2024 04:29:45 10/23/19 25 10/23/2024 COMPR EHENS PEDRO METAB OLIC PANEL sodium 138 mmol/ L 135-14 6 normal Not Available [address], [address], 10/23/2024 04:29:45 10/23/19 25 10/23/2024 COMPR EHENS PEDRO METAB OLIC PANEL potassium 4.6 mmol/ L 3.5-5. 3 normal Not Available [address], [address], 10/23/2024 04:29:45 10/23/19 25 10/23/2024 COMPR EHENS PEDRO METAB OLIC PANEL chloride 105 mmol/ L 98-110 normal Not Available [address], [address], 10/23/2024 04:29:45 10/23/19 25 10/23/2024 COMPR EHENS PEDRO METAB OLIC PANEL carbon dioxide 27 mmol/ L 20-32 normal Not Available [address], [address], 10/23/2024 04:29:45 10/23/19 25 10/23/2024 COMPR EHENS PEDRO METAB OLIC PANEL calcium 9.7 mg/dL 8.6-10 .3 normal Not Available [facility] [address], [address], 10/23/2024 04:29:45 10/23/19 25 10/23/2024 COMPR EHENS PEDRO METAB OLIC PANEL protein, total 6.9 g/dL 6.1-8. 1 normal Not Available [facility] [address], [address], 10/23/2024 04:29:45 10/23/19 25 10/23/2024 COMPR EHENS PEDRO METAB OLIC PANEL albumin 3.8 g/dL 3.6-5. 1 normal Not Available [address], [address], 10/23/2024 04:29:45 10/23/19 25 10/23/2024 COMPR EHENS PEDRO METAB OLIC PANEL globulin 3.1 g/dL_ (calc ) 1.9-3. 7 normal Not Available [address], [address], 10/23/2024 04:29:45 10/23/19 25 10/23/2024 COMPR EHENS PEDRO METAB OLIC PANEL albumin/glob ulin ratio 1.2 (calc ) 1.0-2. 5 normal Not Available [address], [address], 10/23/2024 04:29:45 10/23/19 25 10/23/2024 COMPR EHENS PEDRO METAB OLIC PANEL bilirubin, total 0.9 mg/dL 0.2-1. 2 normal Not Available [address], [address], 10/23/2024 04:29:45 10/23/19 25 10/23/2024 COMPR EHENS PEDRO METAB OLIC PANEL alkaline phosphatase 62 U/L 35-144 normal Not Available [address], [address], 10/23/2024 04:29:45 10/23/19 25 10/23/2024 COMPR EHENS PEDRO METAB OLIC PANEL AST 23 U/L 10-35 normal Not Available [address], [address], 10/23/2024 04:29:45 10/23/19 25 10/23/2024 COMPR EHENS PEDRO METAB OLIC PANEL ALT 20 U/L 9-46 normal Not Available [employer] [facility] [address] [facility] [place], [address], 10/23/2024 04:29:45 Result Notes None recorded. Problems Name Problem SNOMED Code Status Onset Date Resolution Date Notes Provider Name and Address Organization Details Recorded Time Essential hypertension 00907976 Active 2019 Not Available [facility] 3 10:52:51 Malignant neoplasm of prostate 861099587 Active 2021 Not Available [facility] 3 10:52:51 Hyperlipidemi a 83958733 Active 2022 Not Available [facility] 3 10:52:51 Soft tissue swelling of ankle joint 215824938 Active 2022 Not Available [facility] 3 10:52:51 Hyperglycemia 45927897 Active 2022 Not Available [facility] 3 10:52:51 Feces contents abnormal 260338637 Active 2022 Not Available [facility] 3 10:52:51 Urinary incontinence 636721948 Active 2022 Not Available [facility] 3 10:52:51 Problem Notes None recorded. Procedures Surgical History Date Name Laterality Status Provider Name and Address Organization Details Recorded Time 3 Colonoscopy completed [facility] 07/26/2022 14:01:20 Imaging Results None recorded. Procedure Notes None recorded. Medical Equipment None Reported. Allergies No known drug allergies Medications Name Sig Start Date Stop Date Status Note LastModified by Organization Details LastModified Time latanopro st 0.005 % eye drops INSTILL 1 DROP INTO BOTH EYES AT BEDTIME active Not Available Not Available No t Available metoprolo l succinate ER 50 mg tablet,ex tended release 24 hr TAKE 1 TABLET BY MOUTH EVERY DAY IN THE EVENING active Not Available Not Available No t Available ondansetr on HCl 4 mg tablet TAKE 1 TABLET BY MOUTH EVERY 4 TO 6 HOURS NEEDED 12/20 completed Not Available Not Available Not Available acetamino phen 300 mg-codein e 30 mg tablet 06/23 completed Not Available Not Available Not Available amlodipin e 5 mg tablet Take 1 tablet every day by oral route. 03/17 completed -- increase d to 10 mg daily Not Available Not Available Not Available ciproflox acin 500 mg tablet 10/15 completed Not Available Not Available Not Available tramadol 50 mg tablet 05/08 completed Not Available Not Available Not Available prednisol one acetate 1 % eye drops,hermann pension INSTILL ONE DROP IN LEFT EYE 4 TIMES A DAY 05/08 completed Not Available Not Available Not Available amlodipin e 10 mg tablet TAKE 1 TABLET BY MOUTH EVERY DAY IN THE EVENING FOR 90 DAYS 12/20 completed -- no longer on it Not Available Not Available Not Available cephalexi n 500 mg capsule 06/23 completed Not Available Not Available Not Available brimonidi ne 0.2 % eye drops INSTILL 1 DROP INTO BOTH EYES TWICE A DAY active Not Available Not Available No t Available doxazosin 4 mg tablet TAKE 1 TABLET BY MOUTH EVERY DAY active Not Available Not Available No t Available metoprolo l succinate ER 25 mg tablet,ex tended release 24 hr Take 1 tablet every day by oral route. 03/28 completed Not Available Not Available Not Available oxycodone -acetamin ophen 7.5 mg-325 mg tablet TAKE ONE-HALF TO 1 TABLET BY MOUTH EVERY 4-6 HOURS NEEDED FOR PAIN, MAX 4 TABLETS PER DAY 12/20 completed Not Available Not Available Not Available timolol maleate 0.5 % eye drops INSTILL 1 DROP INTO BOTH EYES TWICE A DAY active Not Available Not Available No t Available doxazosin 2 mg tablet TAKE 1 TABLET BY MOUTH EVERY DAY 12/20 completed -- on 4 mg now Not Available Not Available Not Available amoxicill in 875 mg-potass ium clavulana te 125 mg tablet 06/19 completed Not Available Not Available Not Available rosuvasta tin 5 mg tablet TAKE 1 TABLET BY MOUTH EVERY DAY IN THE EVENING 05/08 completed -- on 10 mg now Not Available Not Available Not Available rosuvasta tin 10 mg tablet TAKE 1 TABLET BY MOUTH EVERY DAY active Not Available Not Available No t Available Boostrix Tdap 2.5 Lf unit-8 mcg-5 Lf/0.5 mL intramusc ular syringe 06/23 completed Not Available Not Available Not Available chlorhexi dine gluconate 0.12 % mouthwash RINSE MOUTH WITH 15ML (1 CAPFUL) FOR 30 SECONDS IN MORNING AND EVENING AFTER BRUSHING , THEN SPIT 12/20 completed Not Available Not Available Not Available Prevnar 13 (PF) 0.5 mL intramusc ular syringe 06/23 completed Not Available Not Available Not Available Shingrix (PF) 50 mcg/0.5 mL intramusc ular suspensio n, kit 03/28 completed Not Available Not Available Not Available metoprolo l succinate ER 50 mg capsule sprinkle, ext. release 24 hr Take 1 capsule every day by oral route. 03/28 completed Not Available Not Available Not Available Fluzone High-Dose 2019- (PF) 180 mcg/0.5 mL intramusc ular syringe 06/23 completed Not Available Not Available Not Available Fluzone High-Dose Quad (PF) 240 mcg/0.7 mL IM syringe 03/28 completed Not Available Not Available Not Available Vitals Date Recorded Systolic And Diastolic Provider Name and Address Organization Details Last Updated DateTime 05/08/2024 128/78 mm[Hg] MD Edouard Hanna [facility] [address], [place], [address] 05/08/2024 10:13:22 Date Recorded Body height Heart rate Respiratory rate Body temperature Body mass index (BMI) Body weight Provider Name and Address Organization Details Last Updated DateTime 5 180.34 cm 64 /min 16 /min 97.6 [degF] 24.3 kg/m2 28525.[address] [facility] 5 09:09:28 Date Recorded Systolic And Diastolic Provider Name and Address Organization Details Last Updated DateTime 10/15/2022 126/76 mm[Hg] MD Rubin Hanna2 [facility] [address], [place], [address] 10/15/2022 12:15:30 Date Recorded Body height Body mass index (BMI) Body weight Respiratory rate Body temperature Heart rate Provider Name and Address Organization Details Last Updated DateTime 3 180.34 cm 23.2 kg/m2 37805.3 3 g 16 /min 97.2 [degF] 70 /min Tierra Lerma [facility] 3 12:00:13 Date Recorded Systolic And Diastolic Provider Name and Address Organization Details Last Updated DateTime 11/01/2023 129/80 mm[Hg] Scout Yi MD [address], [place], [address] 11/01/2023 09:22:14 Date Recorded Body height Body temperature Respiratory rate Body mass index (BMI) Body weight Heart rate Provider Name and Address Organization Details Last Updated DateTime 4 180.34 cm 97.8 [degF] 16 /min 24.1 kg/m2 38429.4 8 g 70 /min Korin Yi [facility] 4 09:04:57 Date Recorded Systolic And Diastolic Provider Name and Address Organization Details Last Updated DateTime 11/05/2024 136/80 mm[Hg] MD Rubin Hanna[address], [place], [address] 11/05/2024 09:52:00 Date Recorded Body height Heart rate Respiratory rate Body temperature Body mass index (BMI) Body weight Provider Name and Address Organization Details Last Updated DateTime 5 180.34 cm 73 /min 16 /min 97.7 [degF] 23.3 kg/m2 84771.[address] [facility] 5 08:42:49 Date Recorded Systolic And Diastolic Provider Name and Address Organization Details Last Updated DateTime 04/26/2023 129/84 mm[Hg] Scout Yi MD [address], [place], [address] 04/26/2023 09:35:44 Date Recorded Body height Heart rate Respiratory rate Body temperature Body mass index (BMI) Body weight Provider Name and Address Organization Details Last Updated DateTime 3 180.34 cm 64 /min 16 /min 97.3 [degF] 23.6 kg/m2 19120.[address] [facility] 3 08:54:34 Social History Question Answer Notes LastModified by Organizat ion Details LastModified Time Tobacco Smoking Status Never Smoker Kimi Mott [facility] 05/26/2019 10:05:53 Do You Have An Advance Directive? No Information not available 05/26/2019 What Is Your Level Of Caffeine Consumption? Occasional [email or web address] Information not available 06/22/2022 How Much Tobacco Do You Chew? None Chew 1 Can Every 2 Weeks X 5 Years. Quit In 2009 Information not available 06/23/2019 What Is Your Code Status? Full Code Information not available 05/26/2019 In The 14 Days Before Symptom Onset, Have You Had Close Contact With A Laboratory-confir med COVID-19 While That Case Was Ill? No Information not available 09/23/2019 In The 14 Days Before Symptom Onset, Have You Had Close Contact With A Person Who Is Under Investigation For COVID-19 While That Person Was Ill? No Information not available 09/23/2019 Have You Been To An Area Known To Be High Risk For COVID-19? No Information not available 09/23/2019 What Type Of Diet Are You Following? REGULAR Information not available 05/26/2019 Which Illicit Or Recreational Drugs Have You Used? None Information not available 05/26/2019 Marital Status Informatio n not available 05/26/2019 What Was The Date Of Your Most Recent Tobacco Screening? 11/05/2024 [email or web address] Information not available 11/05/2024 How Much Tobacco Do You Smoke? No Information not available 05/26/2019 How Many Years Have You Smoked Tobacco? 5 Information not available 05/26/2019 Sex: Unknown Functional Status Question Answer Note LastModified by Organization Details LastModified Time Do you use any illicit or recreational drugs? No Information not available 06/19/2021 Do you or have you ever used any other forms of tobacco or nicotine? Yes [email or web address] Information not available 06/19/2021 What is your level of alcohol consumption? Occasional Red wine occasionally for health benefits Information not available 05/26/2019 Do you or have you ever used smokeless tobacco? 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 Never used electronic cigarettes Information not available 05/26/2019 What is your exercise level? Heavy Information not available 05/26/2019 Mental Status None recorded. Family History Relationship Description Onset Age of this Age Resolved Age Notes LastModified by Organization Details LastModified Time Mother Malignant neoplasm of breast Dx'd around 71 y/o- deceas ed @ 74 y/o [email or web address] Not available 05/26/2019 10:04:17 Brother Alcoholism [email or web address] Not avail able 05/26/2019 09:51:46 Father Alcoholism [email or web address] Not availa ble 05/26/2019 10:07:42 Notes:-- no FH for CAD or DM Medical History No medical history recorded. Immunizations Vaccine Type Date Status Note Provider Nam e and Address Organization Details Recorded Time Pneumococcal conjugate PCV 13 0 completed MD Edouard Hanna [facility], [address], [facility] 04/08/2023 16:53:32 Influenza, high-dose, trivalent, PF 0 completed MD Edouard Hanna [facility], [address], [facility] 04/08/2023 16:53:32 zoster recombinant 0 completed MD Edouard Hanna [facility], [address], [facility] 04/08/2023 16:53:32 Tdap 0 completed MD Edouard Hanna [address], [address], [facility] 04/08/2023 16:53:32 zoster recombinant 0 completed MD Edouard Hanna [address], [place], [address], [facility] 04/08/2023 16:53:32 Influenza, high-dose, quadrivalent, PF 0 completed MD Edouard Hanna [address], [place], [address], [facility] 04/08/2023 16:53:32 pneumococcal polysaccharide PPV23 1 completed MD Edouard Hanna [facility], [place], [address], [facility] 04/08/2023 16:53:32 COVID-19, mRNA, LNP-S, PF, 100 mcg/0.5mL dose or 50 mcg/0.25mL dose 1 completed MD Edouard Hanna [facility], [place], [address], [facility] 04/08/2023 16:53:32 COVID-19, mRNA, LNP-S, PF, 100 mcg/0.5mL dose or 50 mcg/0.25mL dose 1 completed MD Edouard Hanna [facility] [address], [place], [address], [facility] 04/08/2023 16:53:32 Influenza, adjuvanted, quadrivalent, PF 1 completed MD Edouard Hanna [facility] [address], [place], [address], [facility] 04/08/2023 16:53:32 Influenza, adjuvanted, quadrivalent, PF 3 completed MD Edouard Hanna [facility], [place], [address], [facility] 04/08/2023 16:53:32 RSV, recombinant, protein subunit RSVpreF, adjuvant reconstituted, 0.5 mL, PF 3 completed MD Edouard Hanna [address], [place], [address], [facility] 04/08/2023 16:53:32 Influenza, high-dose, trivalent, PF 5 [facility] 15:29:20 Past Encounters Encounter ID Performer Location Encounter Start Date Encounter Closed Date Diagnosis/Indication Diagnosis SNOMED-CT Code Diagnosis ICD10 Code Diagnosis IMO Codes Diagnosis Note [id number] [facility] [place] [facility] [address] [place] [address] 05/26/2019 09:06:56 05/26/2019 11:18:43 Glaucoma 14060146 H40.9 -- sees Oph Dr Leena Phan every 4 months. Essential hypertension 79448622 I10 Hyperlipid emia screening 712877222 Z13.220 Body mass index 20-24 - normal 514556153 Z68.23 Hepatitis C screening 41 2306659 Z11.59 Active or passive immunization 736578286 Z23 Screening for malignant neoplasm of colon 158971641 Z12.11 -- pt does not want colonoscop y. Screening for malignant neoplasm of prostate 545471579 Z12.5 Increased thirst 8768566 03 R63.1 Fatigue 67117557 R53.83 (rare) -- especially when using eye drops Advance di rective discussed with patient 003014863 Z71.89 [id number] Scout Yi MD [place] [address] [place] [address] 06/23/2019 15:06:28 06/23/2019 17:31:27 Essential hypertension 44853490 I10 -- recheck lab(s) on 11/24/19 Fatigue 43723489 R53.83 (rare) -- especially when using eye dropsnorma l CBC, TFT and B12 (on 05/26/2019) Glaucoma 68723217 H40.9 -- sees Ophth Dr Leena Phan every 4 months. Body mass index 20-24 - normal 854024304 Z68.23 pt is in healthy weight category w/ BMI 22.9 Advance di rective discussed with patient 594878572 Z71.89 Hepatitis C screening 41 5340284 Z11.59 Hep C was neg 05/26/2019 Active or passive immunization 934449568 Z23 updated Screening for malignant neoplasm of colon 080699474 Z12.11 cologuard was neg 06/01/2019 Screening for malignant neoplasm of prostate 055526539 Z12.5 PSA 3.2 on 05/26/2019 -- recheck PSA level on 11/24/19 Increased thirst 2565236 03 R63.1 A1C was 5.3 on 05/26/2019 Hyperlipidemia 43974125 E78.5 LDL 114, HDL 60 on 05/26/2019 -- recheck lab(s) on 11/24/19 Adult [facility] th examination 771627143 Z00.00 [id number] Scout Yi MD [place], [address] [place] [address] 09/23/2019 11:27:05 09/23/2019 13:16:09 Benign essential hypertension 7532129 I10 -- uncontroll ed-- will add Toprol xl Hyperlipidemia 50100147 E78.5 LDL 114, HDL 60 on 05/26/2019 -- recheck lab(s) on 11/24/19 [id number] Scout Yi MD [place] [facility], [address] [place] [address] 03/28/2020 09:09:40 03/28/2020 10:23:26 Benign essential hypertension 9469182 I10 -- uncontroll ed but improving; pt is still on Amlodipine 5 mg daily-- will increase Amlodipine to 10 mg daily Hyperlipidemia 78090561 E78.5 LDL 114, HDL 60 on 05/26/2019 -- recheck lab(s) on 11/24/19 Active or passive immunization 411111607 Z23 updated [id number] Scout Yi MD [place] [facility], [address] [place] [address] 06/29/2020 10:57:22 06/29/2020 12:59:47 Benign essential hypertension 2363070 I10 -- uncontroll ed but improving; pt is still on Amlodipine 5 mg daily-- will increase Amlodipine to 10 mg daily-- recheck lab within 3 days from 06/29/20 Hyperlipidemia 62778709 E78.5 LDL 114, HDL 60 on 05/26/2019 -- recheck lab(s) on 11/24/19 Active or passive immunization 775530678 Z23 -- current Screening for malignant neoplasm of colon 098287361 Z12.11 -- cologuard was neg 06/01/2019 Screening for malignant neoplasm of prostate 143865382 Z12.5 PSA 3.2 ( 05/26/2019 )-- recheck lab within 3 days from 06/29/20 Soft tissu e swelling of ankle joint 691611463 R22.42 (mild at ankles L>>R) -- likely from Amlodipine [id number] Scout Yi MD [employer] [address] [facility] [address] [place] [address] 12/26/2020 09:27:19 12/26/2020 11:05:39 Adult health examination 134285002 Z00.00 Essential hypertension 75049710 I10 -- change Amlodipine to Doxazosin due to left ankle edema and nocturia-- EKG done on 06/29/20-- recheck lab(s) on 02/01/21 Soft tissu e swelling of ankle joint 072261220 R22.42 (mild at ankles L>>R) -- likely from Amlodipine Hyperlipidemia 17943642 E78.5 -- recheck lab(s) on 02/01/21 Active or passive immunization 909784173 Z23 -- current Screening for malignant neoplasm of colon 240774559 Z12.11 -- cologuard was neg 06/01/2019 Screening for malignant neoplasm of prostate 109080933 Z12.5 PSA 3.2 ( 05/26/2019 )-- recheck lab(s) on 02/01/21 Hyperglycemia 47675527 R 73.9 -- recheck lab(s) on 02/01/21 Body mass index 20-24 - normal 191976041 Z68.23 -- pt is in healthy weight category w/ BMI 22.5 Increased frequency of urination 387203628 R35.0 [id number] Scout Yi MD [facility] [address] [facility] [address] [place] [address] 06/19/2021 09:13:38 06/19/2021 10:01:55 Essential hypertension 51935773 I10 -- uncontroll ed; will increase Doxazosin from 2 mg to 4 mg in the evening.-- EKG done on 06/29/20-- recheck lab(s) on 02/01/21 Hyperlipidemia 31287851 E78.5 -- recheck lab(s) on 02/01/21 Hyperglycemia 50957896 R 73.9 -- A1c level of 5.0 (02/01/21) Body mass index 20-24 - normal 896991485 Z68.23 -- pt is in healthy weight category w/ BMI 23.2 Soft tissu e swelling of ankle joint 199551077 R22.42 (mild at ankles L>>R) -- likely from Amlodipine Active or passive immunization 554738112 Z23 -- current Screening for malignant neoplasm of colon 543235527 Z12.11 -- cologuard was neg 06/01/2019 Screening for malignant neoplasm of prostate 526056084 Z12.5 PSA 3.2 ( 05/26/2019 ) --> 2.6 (01/29/21) Hepatitis C screening 41 4749918 Z11.59 Hep C was neg 05/26/2019 At low risk for fall 439 782645 Z91.81 [id number] Scout Yi MD [employer], [address] ,[place] [address] 12/20/2021 09:06:58 12/20/2021 10:01:11 Adult health examination 723183285 Z00.00 -- recheck lab(s) on 01/29/22 Essential hypertension 22465241 I10 -- uncontroll ed; will increase Doxazosin from 2 mg to 4 mg in the evening.-- EKG done 12/20/21-- recheck lab(s) on 01/29/22 Hyperlipidemia 85720701 E78.5 -- recheck lab(s) on 01/29/22 Hyperglycemia 38993394 R 73.9 -- A1c level of 5.0 (02/01/21)- - recheck lab(s) on 01/29/22 Body mass index 20-24 - normal 037802177 Z68.22 -- pt is in healthy weight category w/ BMI 22.2 Soft tissu e swelling of ankle joint 949837647 R22.42 (mild at ankles L>>R) -- likely from Amlodipine At low risk for fall 439 450015 Z91.81 -- no unsteady balance or gait problems-- have not fallen since his 40s-- no fear of falling or falling tendency Hepatitis C screening 41 8062880 Z11.59 -- tested negative for Hepatitis C on 05/26/2019 Active or passive immunization 843794565 Z23 -- current Screening for malignant neoplasm of colon 916272177 Z12.11 -- cologuard was neg 06/01/2019 Screening for malignant neoplasm of prostate 851940870 Z12.5 PSA 3.2 ( 05/26/2019 ) --> 2.6 (01/29/21)- - recheck lab(s) on 01/29/22 [id number] Scout Yi MD [facility], [address] ,[address] [place] [address] 04/21/2022 18:09:46 05/21/2022 15:56:50 Malignant neoplasm of prostate 232002059 C61 -- I advised pt on the Pros & Cons of both surgery & XRT. [id number] Scout Yi MD [facility], [address] ,[address] [place] [address] 06/22/2022 09:15:52 06/22/2022 10:42:56 Essential hypertension 50044152 I10 -- uncontroll ed; will increase Doxazosin from 2 mg to 4 mg in the evening.-- EKG done 06/22/22-- recheck lab(s) on 01/29/22 Hyperlipidemia 62581946 E78.5 -- recheck lab(s) on 01/29/22 Hyperglycemia 56610720 R 73.9 -- A1c level of 5.0 (02/01/21)- - recheck lab(s) on 01/29/22 Body mass index 20-24 - normal 543072046 Z68.22 -- pt is in healthy weight category w/ BMI 23.7 Soft tissu e swelling of ankle joint 053980703 R22.42 (mild at ankles L>>R) -- likely from Amlodipine At low risk for fall 439 763890 Z91.81 -- no unsteady balance or gait problems-- have not fallen since his 40s-- no fear of falling or falling tendency Hepatitis C screening 41 8895522 Z11.59 -- tested negative for Hepatitis C on 05/26/2019 Active or passive immunization 271882024 Z23 -- current Screening for malignant neoplasm of colon 133313196 Z12.11 -- cologuard was neg 06/01/2019 Screening for malignant neoplasm of prostate 151548054 Z12.5 PSA 3.2 ( 05/26/2019 ) --> 2.6 (01/29/21)- - recheck lab(s) on 01/29/22 Malignant neoplasm of prostate 821063992 C61 -- I advised pt on the Pros & Cons of both surgery & XRT.-- pt has radical prostatect alejandro scheduled at [facility] on 08/07/[address] Karri Arias [id number] Scout Yi MD [facility] ,[address] [address] 07/13/2022 12:15:58 07/13/2022 13:27:59 Essential hypertension 41447711 I10 -- uncontroll ed; will increase Doxazosin from 2 mg to 4 mg in the evening.-- EKG done 06/22/22-- recheck lab(s) on 01/29/22 Hyperlipidemia 71927212 E78.5 -- recheck lab(s) on 01/29/22 Malignant neoplasm of prostate 728801247 C61 -- I advised pt on the Pros & Cons of both surgery & XRT.-- pt has radical prostatect alejandro scheduled at [facility] on 08/07/[address] Karri Arias Hyperglycemia 19752765 R 73.9 -- A1c level of 5.0 (02/01/21)- - recheck lab(s) on 01/29/22 Body mass index 20-24 - normal 253482897 Z68.22 -- pt is in healthy weight category w/ BMI 23.7 Soft tissu e swelling of ankle joint 957812364 R22.42 (mild at ankles L>>R) -- likely from Amlodipine At low risk for fall 439 876471 Z91.81 -- no unsteady balance or gait problems-- have not fallen since his 40s-- no fear of falling or falling tendency Hepatitis C screening 41 3462927 Z11.59 -- tested negative for Hepatitis C on 05/26/2019 Active or passive immunization 676441108 Z23 -- current Screening for malignant neoplasm of colon 388130074 Z12.11 -- cologuard was neg 06/01/2019 Screening for malignant neoplasm of prostate 243130587 Z12.5 PSA 3.2 ( 05/26/2019 ) --> 2.6 (01/29/21)- - recheck lab(s) on 01/29/22 [id number] Scout Yi MD [facility] [address] [place] [address] [address] 08/16/2022 15:11:39 08/16/2022 17:25:57 Malignant neoplasm of prostate 346082435 C61 -- I advised pt on the Pros & Cons of both surgery & XRT.-- pt has radical prostatect alejandro scheduled at [facility] on 08/07/[address] Karri Arias Urinary incontinence 165 482924 R32 (since radical prostatect alejandro) Essential hypertension 98681578 I10 -- controlled ; will increase Doxazosin from 2 mg to 4 mg in the evening.-- EKG done 06/22/22-- recheck lab(s) Hyperlipidemia 48224334 E78.5 -- recheck lab(s) At low risk for fall 439 025387 Z91.81 -- no unsteady balance or gait problems-- have not fallen since his 40s-- no fear of falling or falling tendency [id number] Scout Yi MD [facility] [address] [place] [address] [address] [place] [address] 10/15/2022 10:38:55 10/15/2022 12:30:22 Essential hypertension 40487334 I10 -- controlled ;-- EKG done 06/22/22-- recheck lab(s) Hyperlipidemia 89930945 E78.5 -- LDL of 64 on 10/08/22 Malignant neoplasm of prostate 957714943 C61 -- pt has radical prostatect alejandro scheduled at [facility] on 08/07/[address] Karri Arias Hyperglycemia 76483784 R 73.9 -- A1c level of 5.0 (02/01/21) --> 5.1 (10/08/22) Body mass index 20-24 - normal 095489410 Z68.23 -- pt is in healthy weight category w/ BMI 23.2 [id number] Scout Yi MD [facility] [address] [facility] [address] [place] [address] 04/26/2023 08:43:46 04/26/2023 09:52:49 Adult health examination 582056499 Z00.00 -- recheck lab(s) on 01/29/22 Essential hypertension 09020592 I10 -- controlled ;-- EKG done 06/22/22-- recheck lab(s) Hyperlipidemia 97333711 E78.5 -- LDL of 64 on 10/08/22 Malignant neoplasm of prostate 838927470 C61 -- pt has radical prostatect alejandro scheduled at [facility] on 08/07/[address] Karri Arias Hyperglycemia 97399939 R 73.9 -- A1c level of 5.0 (02/01/21) --> 5.1 (10/08/22) Body mass index 20-24 - normal 971211971 Z68.23 -- pt is in healthy weight category w/ BMI 23.6 Urinary incontinence 165 983621 R32 (since radical prostatect alejandro) At low risk for fall 439 841563 Z91.81 -- no unsteady balance or gait problems-- have not fallen since his 40s-- no fear of falling or falling tendency Advance di rective discussed with patient 172158785 Z71.89 [id number] Scout Yi MD [facility] [employer] [address] ,[address] [place] [address] 11/01/2023 08:54:54 11/01/2023 09:37:57 Essential hypertension 91331966 I10 -- controlled ;-- EKG done 06/22/22-- recheck lab(s) around 04/21/24 Hyperlipidemia 73430966 E78.5 -- based on current ASCVD risk calculatio n of 22.1% (11/01/23), will increase Rosuvastat in from 5 mg--> 10 mg daily Malignant neoplasm of prostate 810275174 C61 -- pt has radical prostatect alejandro scheduled at [facility] on 08/07/[address] Karri rAias-- pt reported he had labs ordered by Dr Arias done in August 2023 Urinary incontinence 165 248417 R32 (since radical prostatect alejandro) Hyperglycemia 29020957 R 73.9 -- A1c level of 5.0 (02/01/21) --> 5.1 (10/08/22) --> 5.6 (10/21/23) Body mass index 20-24 - normal 027730592 Z68.23 -- pt is in healthy weight category w/ BMI 24.1 At low risk for fall 439 102676 Z91.81 -- no unsteady balance or gait problems-- have not fallen since his 40s-- no fear of falling or falling tendency Advance di rective discussed with patient 924683462 Z71.89 Hepatitis C screening 41 3666838 Z11.59 -- tested negative for Hepatitis C on 05/26/2019 Active or passive immunization 793791976 Z23 -- current Screening for malignant neoplasm of colon 207601847 Z12.11 -- cologuard was neg 06/01/2019 -- Gastroente rologist Dr Ulises Canada recommends pt repeat colonoscop y 3 years from 07/23/22 [id number] Scout Yi MD [facility] [facility], [place] [id number] [facility] [address] [address] 05/08/2024 08:53:32 05/08/2024 10:30:53 Adult health examination 570818848 Z00.00 -- recheck lab(s) on 01/29/22 Essential hypertension 65415829 I10 -- controlled ;-- EKG done 06/22/22-- recheck lab(s) around 10/20/24 Hyperlipidemia 87660461 E78.5 -- based on current ASCVD risk calculatio n of 22.1% (11/01/23), will increase Rosuvastat in from 5 mg--> 10 mg daily-- recheck lab(s) around 10/20/24 Malignant neoplasm of prostate 128889950 C61 -- pt has radical prostatect alejandro scheduled at [facility] on 08/07/[address] Karri Arias-- pt reported he had labs ordered by Dr Arias done in August 2023 Urinary incontinence 165 419360 R32 (since radical prostatect alejandro) Hyperglycemia 84827801 R 73.9 -- A1c level of 5.0 (02/01/21) --> 5.1 (10/08/22) --> 5.6 (10/21/23) Body mass index 20-24 - normal 116389635 Z68.23 -- pt is in healthy weight category w/ BMI 24.1 Hepatitis C screening 41 6523343 Z11.59 -- tested negative for Hepatitis C on 05/26/2019 Active or passive immunization 079057558 Z23 -- current Screening for malignant neoplasm of colon 188585032 Z12.11 -- cologuard was neg 06/01/2019 -- Gastroente rologist Dr Ulises Canada recommends pt repeat colonoscop y 3 years from 07/23/22 At low risk for fall 439 163727 Z91.81 -- no unsteady balance or gait problems-- have not fallen since his 40s-- no fear of falling or falling tendency Advance di rective discussed with patient 121916847 Z71.89 [id number] Scout Yi MD [facility], [address] ,[address] [address] 11/05/2024 08:35:07 11/05/2024 09:58:37 Essential hypertension 35389496 I10 -- controlled ;-- EKG done 06/22/22-- recheck lab(s) around 04/23/25 Hyperlipidemia 57634768 E78.5 -- based on current ASCVD risk calculatio n of 22.1% (11/01/23), will increase Rosuvastat in from 5 mg--> 10 mg daily-- recheck lab(s) around 04/23/25 Malignant neoplasm of prostate 770131222 C61 -- pt has radical prostatect alejandro scheduled at [facility] on 08/07/[address] Karri Arias-- pt reported he had PSA lab done for Dr Arias ( in Oct 2024) Urinary incontinence 165 413936 R32 (since radical prostatect alejandro) Hyperglycemia 62099181 R 73.9 -- A1c level of 5.0 (02/01/21) --> 5.1 (10/08/22) --> 5.6 (10/21/23) --> 5.6 (10/20/24) Body mass index 20-24 - normal 342317443 Z68.23 -- pt is in healthy weight category w/ BMI 23.3 (ideal is between 20-25) Hepatitis C screening 41 5774336 Z11.59 -- tested negative for Hepatitis C on 05/26/2019 Active or passive immunization 062496335 Z23 -- current Screening for malignant neoplasm of colon 316052030 Z12.11 -- cologuard was neg 06/01/2019 -- Gastroente rologist Dr Ulises Canada recommends pt repeat colonoscop y 3 years from 07/23/22 At low risk for fall 439 323479 Z91.81 -- no unsteady balance or gait problems-- have not fallen since his 40s-- no fear of falling or falling tendency Advance di rective discussed with patient 762988912 Z71.89 Health Concerns Section Related Observation LastModified by Organization Detai ls LastModified Time None Recorded Concern Status LastModified by Organization Details LastModified Time None Recorded Advance Directives Directive N: Payers Insurance Date Sequence Insurance Name Policy Number Policy Palmer Covered Member ID Palmer Member ID Guarantor Name 11/20/2024 1 [employer] (MEDICARE REPLACEMENT/ ADVANTAGE - PPO) [id number] Yuriy Cheng [id number] Yuriy Cheng Notes Date Note Type Note Provider Name and Address Organization Details Recorded Time 10/15/2022 text/html Pt comes in HTN, HLD, for prostate cancer, ^glucose and weight. Pt feels well and has no c/o. Pt has no new sx and no increasing sx. Patient denies f/c, poor appetitie, any jaw or neck discomfort, left arm pain/left arm discomfort, chest discomfort/pain, diaphoresis, breathing symptoms/chest tightness, indigestion sx, n/v, any angina equivalent symptoms, etc. Scout Yi MD [address], [place], [address], [facility] 10/15/2022 12:29:02 04/26/2023 text/html Medicare Annual Wellness VisitReported by PatientSocial/Behavio ral HistoryFor fracture risk, patient reportshistory of fractures (left hand fx during softball game when he was in high school)but reportsno recent explained fracture,no sudden unexplained fractures, andno previous musculoskeletal injuries. For diet and nutrition, patient reportshealthy dietanddiscussed diet improvement. For physical activity, patient reportsexercises on a regular basis (50 min on treadmill everyday at 4.1 mph (except saturday)),discussed weightbearing activities, anddiscussed exercise habits.Mental Status:For depression risk, patient reportsnever feels sad, empty, or tearful,no loss of interest in activities,no significant changes in weight,no sleep disturbances or insomnia,no agitation,no loss of energy,no feelings of worthlessness or guilt,no thoughts of suicide,no history of depression, andno history of mood disorders. For orientation, patient reportsno disorientation to time,no disorientation to date, andno disorientation to place. For concentration and memory, patient reportsno decreased concentrating ability,no memory lapses or loss, anddoes not forget words. For speech/motor difficulties, patient reportsno speech difficulties,no difficulty expressing formulated concepts,no difficulty with fine manipulative tasks,no difficulty writing/copying,no slowed reaction time, anddoes not knock things over when trying to pick them up.Functional AbilityFor activities of daily living, patient reportsunable to contol urination and bowelsbut reportsable to bathe with limited or no assistance,able to dress with limited or no assistance,able to feed self with limited or no assistance,able to get out of chair or bed with limited or no assistance,able to groom with limited or no assistance, andable to toilet with limited or no assistance. For hearing, patient reportsno loss of hearing. For vision, patient reportsno vision problems (except for glaucoma)((has glaucoma & last eye exam was 06/22/19)). For instrumental activities of daily living, patient reportsable to do house work with limited or no assistance,able to grocery shop with limited or no assistance,able to manage medications with limited or no assistance,able to manage money with limited or no assistance,able to prepare meals with limited or no assistance, andable to use the phone with limited or no assistance. For falls risk assessment, patient reportsno frequent falls while walking,no fall in the past year,no fall since last visit, andno dizziness/vertigo. For home safety, patient reportsno unsafe kathrine hazzards,no unsafe stairs,no unsafe gas appliances,working smoke/co detectors,use of seatbelts,no vision or hearing loss while driving,no fire arms,has hand bars in the bathroom/shower, andgood lighting in the home. Pt comes in for f/u HTN, HLD, prostate ca, urinary incontinence, and weight. Pt is also due for his annual Wellness Visit. Pt feels well and has no c/o. Pt has no new sx and no increasing sx. Patient denies any jaw or neck discomfort, left arm pain/left arm discomfort, chest discomfort/pain, diaphoresis, breathing symptoms/chest tightness, indigestion sx, n/v, any angina equivalent symptoms, etc. Scout Yi MD [address] [facility] [address], [place], [address], [facility] 04/26/2023 09:52:36 11/01/2023 text/html Pt comes in for f/u of HTN, HLD, Hyperglycemia and prostate cancer (had labs done by Urologist Dr Arias in August 2023). Pt feels well and has no c/o. Pt has no new sx and no increasing sx. Patient denies any jaw or neck discomfort, left arm pain/left arm discomfort, chest discomfort/pain, diaphoresis, breathing symptoms/chest tightness, indigestion sx, n/v, any angina equivalent symptoms, etc. Scout Yi MD [address] [facility] [address], [place], [address], [facility] 11/01/2023 09:38:01 05/08/2024 text/html Medicare Annual Wellness VisitReported by PatientSocial/Behavio ral HistoryFor fracture risk, patient reportshistory of fractures (left hand fx during softball game when he was in high school)but reportsno recent explained fracture,no sudden unexplained fractures, andno previous musculoskeletal injuries. For diet and nutrition, patient reportshealthy dietanddiscussed diet improvement. For physical activity, patient reportsexercises on a regular basis (60 min on treadmill everyday at 4.1 mph (except saturday)),discussed weightbearing activities, anddiscussed exercise habits.Mental Status:For depression risk, patient reportsnever feels sad, empty, or tearful,no loss of interest in activities,no significant changes in weight,no sleep disturbances or insomnia,no agitation,no loss of energy,no feelings of worthlessness or guilt,no thoughts of suicide,no history of depression, andno history of mood disorders. For orientation, patient reportsno disorientation to time,no disorientation to date, andno disorientation to place. For concentration and memory, patient reportsno decreased concentrating ability,no memory lapses or loss, anddoes not forget words. For speech/motor difficulties, patient reportsno speech difficulties,no difficulty expressing formulated concepts,no difficulty with fine manipulative tasks,no difficulty writing/copying,no slowed reaction time, anddoes not knock things over when trying to pick them up.Functional AbilityFor activities of daily living, patient reportsunable to contol urination and bowels (due to prostatectomy)but reportsable to bathe with limited or no assistance,able to dress with limited or no assistance,able to feed self with limited or no assistance,able to get out of chair or bed with limited or no assistance,able to groom with limited or no assistance, andable to toilet with limited or no assistance. For hearing, patient reportsno loss of hearing. For vision, patient reportsno vision problems (except for glaucoma)((has glaucoma & last eye exam was 06/22/19)). For instrumental activities of daily living, patient reportsable to do house work with limited or no assistance,able to grocery shop with limited or no assistance,able to manage medications with limited or no assistance,able to manage money with limited or no assistance,able to prepare meals with limited or no assistance, andable to use the phone with limited or no assistance. For falls risk assessment, patient reportsno frequent falls while walking,no fall in the past year,no fall since last visit, andno dizziness/vertigo. For home safety, patient reportsno unsafe kathrine hazzards,no unsafe stairs,no unsafe gas appliances,working smoke/co detectors,use of seatbelts,no vision or hearing loss while driving,no fire arms,has hand bars in the bathroom/shower, andgood lighting in the home. Pt comes in for f/u HTN, HLD, prostate ca, urinary incontinence, and weight. Pt is also due for his annual Wellness Visit. Pt feels well and has no c/o. Pt has no new sx and no increasing sx. Patient denies any jaw or neck discomfort, left arm pain/left arm discomfort, chest discomfort/pain, diaphoresis, breathing symptoms/chest tightness, indigestion sx, n/v, any angina equivalent symptoms, etc. Scout Yi MD [address] [facility] [address], [place], [address], [facility] 05/08/2024 10:24:56 11/05/2024 text/html Pt comes in for f/u of HTN, HLD, prostate cancer (still following w/ Urologist Dr Shearer), ^glucose and weight. Pt feels well and has no c/o. Pt has no new sx and no increasing sx. Patient denies any jaw or neck discomfort, left arm pain/left arm discomfort, chest discomfort/pain, diaphoresis, breathing symptoms/chest tightness, indigestion sx, n/v, any angina equivalent symptoms, etc. Scout Yi MD [address] [facility] [address], [place], [address], [facility] 11/05/2024 09:56:29
--- NOTE | 2025-03-26 04:47 | PC.NURSE ---
Pt placed in hospital bed at this time. Pt A&Ox4, unaware that he has been having seizures. Short term memory in terms of remembering seizure activity is impaired. Urinal placed at bedside.
[2025-03-26] MEDS: levETIRAcetam 500MG/NACL 100ML 500 MG/100 ML BAG 400 MG IVPB (05:27)
--- NOTE | 2025-03-26 06:19 | WPCEDHO ---
ED Hand Off Checklist All vitals saved: YES IV Site documented: YES All med administrations documented: YES Triage Note Triage Note Pt to ED via EMS coming from home 03/25/25 22:43 . Per EMS pt heard pt grunting and making weird noises while in bed and she tried to wake him up and pt was not responding or waking up. Per pt was not speaking and was concerned from a stroke or seizure. Pt states pt was jerking and was unbale to control is saliva. Per EMS when they were on scene they state pt was more alert to himself and where he was at but was speaking more garbled. Pt is A&Ox3-4 at this time. Pt states he does not remember what happened besides just going to bed to go to sleep. Pt is A&ox3-4 at baseline. pt has no complaints at this time. Pt has a hx of HTN, hyperlipidemia, glaucoma, and prostate cancer. pt blood sugar was 111. Allergies No Known Allergies Allergy (Verified 03/25/25 22:53) Administered/Completed Medications Discontinued Medications Diazepam (Diazepam Inj (*Crx) 10 Mg/2 Ml Syringe) Confirm Administered Dose 20 mg .ROUTE .STK-MED ONE Stop: 03/26/25 00:05 Last Admin: 03/26/25 00:31 Dose: Not Given Documented By: CHAYITO Non-Admin Reason: No Dose Required Levetiracetam (Keppra Iv) 1,500 mg in 100 mls @ 600 mls/hr IVPB ONCE STA Stop: 03/26/25 00:21 Last Infusion: 03/26/25 00:54 Dose: Infused Documented By: Admin: 03/26/25 00:42 Dose: 600 mls/hr Documented By: YENNIFER Levetiracetam (Keppra Iv) 1,500 mg in 100 mls @ 600 mls/hr IVPB ONCE ONE Stop: 03/26/25 00:24 Last Infusion: 03/26/25 00:54 Dose: Infused Documented By: Admin: 03/26/25 00:41 Dose: 600 mls/hr Documented By: YENNIFER Levetiracetam (Keppra Iv) 1,500 mg in 100 mls @ 600 mls/hr IVPB ONCE ONE Stop: 03/26/25 00:24 Last Infusion: 03/26/25 00:54 Dose: Infused Documented By: Admin: 03/26/25 00:41 Dose: 600 mls/hr Documented By: YENNIFER Sodium Chloride (Normal Saline Iv) Confirm Administered Dose 1,000 mls @ as directed .ROUTE .STK-MED ONE Stop: 03/26/25 00:22 Last Infusion: 03/26/25 02:09 Dose: Infused Documented By: Admin: 03/26/25 00:43 Dose: 999 mls/hr Documented By: YENNIFER Levetiracetam (Keppra Iv) 500 mg in 100 mls @ 400 mls/hr IVPB ONCE STA Stop: 03/26/25 05:27 Last Infusion: 03/26/25 05:59 Dose: Infused Documented By: Admin: 03/26/25 05:27 Dose: 400 mls/hr Documented By: TORSTEN Midazolam HCl (Midazolam Hcl (*Crx) 2 Mg/2 Ml Vial) 2 mg IV PUSH ONCE ONE Stop: 03/26/25 00:12 Last Admin: 03/26/25 00:43 Dose: 2 mg Documented By: YENNIFER Notes 03/26/25 04:47 Nurse Note by Diana Hurd Pt placed in hospital bed at this time. Pt A&Ox4, unaware that he has been having seizures. Short term memory in terms of remembering seizure activity is impaired. Urinal placed at bedside. Initialized on 03/26/25 04:47 - END OF NOTE 03/26/25 00:42 Nurse Note by Monique Murphy PCP verbally ordered keppra bags to be rapidly given by squeezing bags. Initialized on 03/26/25 00:42 - END OF NOTE 03/26/25 00:07 Nurse Note by Diana Hurd Pt experienced an estimated 30 second seizure at this time. Tech and RN were present in room and turned pt on side. Pt was suctioned for secretions post-seizure. Seizure pads applied. Initialized on 03/26/25 00:07 - END OF NOTE 03/25/25 23:20 Nurse Note by Monique Murphy Pt informed and aware of urine sample needed and urinal at bedside. Initialized on 03/25/25 23:20 - END OF NOTE Interventions/Assessments IV / Saline Lock, Insert Start: 03/25/25 22:42 Freq: STAT Status: Active Protocol: Document 03/25/25 22:50 KRZ (Rec: 03/25/25 22:51 KRZ [id number]) IV Assessment Peripheral Access Left Hand IV Catheter Access Initiated Before Arrival Catheter Gauge 18 IV Site Assessment WNL IV Care and WNL Maintenance PA: Cardiovascular Assessment Start: 03/25/25 22:38 Freq: Status: Active Protocol: Document 03/25/25 22:59 MCO (Rec: 03/25/25 23:00 MCO [id number]) Cardiovascular Assessment Cardiovascular None Symptoms Skin Description Normal Color Heart Sounds Normal Jugular Vein None Distention PA: Neurological Assessment Start: 03/25/25 22:38 Freq: Status: Active Protocol: Document 03/26/25 04:46 MCO (Rec: 03/26/25 04:47 MCO [id number]) Neurological Assessment Level of Alert,Awake,Drowsy Consciousness Arousable to Verbal Orientation Oriented to Person,Oriented to Place,Oriented to Time Neurological Confusion,Seizure Symptoms Behavior Appropriate,Cooperative Patient Able to Comprehend Comprehension Memory Description Intact,Short Term Impaired PA: Respiratory Assessment Start: 03/25/25 22:38 Freq: Status: Active Protocol: Document 03/25/25 22:59 MCO (Rec: 03/25/25 23:00 MCO [id number]) Respiratory Assessment Symptoms None Effort Normal Pattern Regular Depth Normal Cough Description None Sputum Amount None Oxygen Delivery Oxygen Delivery Room Air Last Vital Signs Temperature 98 F 03/25/25 22:43 Pulse Rate 63 03/26/25 06:18 Respiratory Rate 15 03/26/25 06:18 Pulse Oximetry 99 03/26/25 06:18 Blood Pressure 104/64 03/26/25 06:18 Blood Pressure Mean 77 03/26/25 06:18 Blood Pressure Position Right Lateral 03/26/25 06:18 Oxygen Delivery Room Air 03/26/25 00:15 Weight 77.2 kg 03/25/25 22:43 Last Result - Abnormals Only WBC 4.4 K/mm3 (4.5-10.0) L 03/25/25 23:18 Neut % (Auto) 75.4 % (45.5-73.1) H 03/25/25 23:18 Lymph % (Auto) 14.0 % (18.3-44.2) L 03/25/25 23:18 Lymph # (Auto) 0.61 K/mm3 (0.9-3.2) L 03/25/25 23:18 Sodium 136 mmol/L (137-145) L 03/25/25 23:18 Estimated GFR 54 (59-) L 03/25/25 23:18 Glucose 129 mg/dL (65-110) H 03/25/25 23:18 Lactic Acid 2.3 mmol/L (0.7-2.0) H 03/26/25 01:31 Urine Protein 2+ mg/dL (Negative) H 03/25/25 23:51 Urine Ketones Trace mg/dL (Negative) H 03/25/25 23:51 Urine RBC 6-10 /hpf (0-2) H 03/25/25 23:51 Salicylates < 1.0 mg/dL (2-20) L 03/25/25 23:18 Acetaminophen < 10 ug/mL (10-30) L 03/25/25 23:18 Most Recent Suicide Severity Rating Suicide Severity Rating NO RISK INDICATED 03/25/25 22:43
--- NOTE | 2025-03-26 06:29 | PC.NURSE ---
Gave report to Johanny LITTLEJOHN at this time. Floor RN okay with giving 0600 med when delivered by pharmacy.
[2025-03-26 06:48] LABS: Hematocrit 42.7 % (42.0-52.0); Hemoglobin 13.7 g/dL (14.0-18.0); Mean Corpuscular HGB Conc 32.1 g/dl (32-36); Mean Corpuscular Hemoglobin 28.5 pg (26-34); Mean Corpuscular Volume 88.8 fl (80-100); Platelet Count Result 184 k/mm3 (150-375); Red Blood Count 4.81 M/mm3 (4.6-6.20); White Blood Count 7.5 K/mm3 (4.5-10.0)
[2025-03-26 07:16] LABS: Anion Gap 5 mmol/L (4-12); Blood Urea Nitrogen 15 mg/dL (9-20); Calcium 9.2 mg/dL (8.4-10.2); Carbon Dioxide 24 mmol/L (22-30); Chloride 107 mmol/L (98-107); Estimated CRCL calculation 57 ml/min; Estimated Glomerular Filt Rate > 60; Glucose 79 mg/dL (65-110); Potassium 3.9 mmol/L (3.4-5.0); Sodium 136 mmol/L (137-145)
--- NOTE | 2025-03-26 07:27 | ADMIMU ---
This patient, Yuriy Cheng, was admitted to IMU status, and placed in ICU-6 at 0645. Patient/family oriented to hospital policies and general routines including ID bracelet, bed and alarms, visiting hours, pain management, procedures, bathroom and other care routines, personal items, smoking policy, room service/diet, and visiting hours. Valuables list has been completed. Information on how to activate the Rapid Response Team has been discussed. Patient/Family are encouraged to report perceived risks to care and to ask questions if they do not understand what they are told or what they should do.
[2025-03-26] MEDS: BRIMONIDINE TARTRATE 0.2% OP SOLN 5 ML BTL 1 DROP EACH EYE ×2 (09:06→18:07)
--- NOTE | 2025-03-26 09:45 | P.HP_ITS ---
H&P: HPI History of Present Illness Date/Time: 03/26/25 09:45 Chief Complaint: Altered mental status Narrative: 74-year-old male with past medical history of hypertension and hyperlipidemia presents the hospital after a witnessed seizure. Per the there is no history of seizures. HPI is limited as patient does not remember the event. Per the the patient was in bed when she found him shaking in the increasing noises and drooling and not responding to voice. She called EMS. Per the the patient had 2 seizures at home. When EMS got there the patient was postictal. When patient arrived to the ED he had another seizure in the emergency room and was given Versed and loading dose Keppra. Lab work shows a sodium of 136, lactic 2.3, followed by 1.2, UA negative for infection, toxicology screen negative ethanol level negative. CT head no acute process. EEG and MRI pending. Patient has no complaints. Patient is A&O x4 on bedside assessment Review of Systems Review of Systems: 12 systems were reviewed and are negativ e except for as per HPI. [facility] Past Medical History Medical History (Updated 03/26/25 @ 09:54 by Pam Wilcox APRN) Hypertension Hyperlipidemia Social History Social History Smoking status: Never smoker Second hand tobacco smoke exposure: Yes Alcohol intake: never Substance use: never Substance use type: does not use Lack of Transportation: No Lack of Food: Never True Current Housing: I Have Housing Concerned About Future Housing: No Difficulty Paying Gas/Electric Bills: No Difficulty Paying for Meds: No Currently Unemployed: No Education: Bachelor's Degree Difficulty w/ Childcare or Family Care: No Spiritual care concerns: No Meds Home Medications and Allergies Home Medications ?Medication ?Instructions ?Recorded ?Confirmed ?Type brimonidine 0.2 % eye drops 1 drp EACH EYE BID 5 03/26/25 History doxazosin 4 mg tablet (Cardura) 4 mg PO HS 03/25/25 History metoprolol succinate 50 mg 50 mg PO HS 03/25/25 History tablet,extended release 24 hr rosuvastatin 10 mg tablet 10 mg PO HS 03/25/25 5 History latanoprost 0.005 % eye drops 1 drp EACH EYE HS 03/26/25 History timolol maleate 0.5 % eye drops 1 drp EACH EYE BID 03/26/25 History Allergies Allergy/AdvReac Type Severity Reaction Status Date / Time No Known Allergies Allergy Verified 03/26/25 07:38 Vital Signs Vital Signs - 24 hr 03/25/25 22:43 03/25/25 22:59 03/26/25 00:15 Temperature 98 F Pulse Rate 84 Respiratory Rate 15 Blood Pressure 112/72 Pulse Oximetry 98 Oxygen Delivery Room Air Room Air Room Air 03/26/25 00:16 03/26/25 04:47 03/26/25 06:18 Temperature Pulse Rate 93 85 63 Respiratory Rate 17 16 15 Blood Pressure 97/54 L 135/57 L 104/64 Pulse Oximetry 98 100 99 Oxygen Delivery 03/26/25 06:50 03/26/25 08:00 03/26/25 08:00 Temperature 97.9 F 98.1 F Pulse Rate 55 L 59 L 59 L Respiratory Rate 15 15 15 Blood Pressure 117/61 110/59 L Pulse Oximetry 100 98 98 Oxygen Delivery Room Air 03/26/25 08:00 Temperature Pulse Rate 58 L Respiratory Rate Blood Pressure Pulse Oximetry Oxygen Delivery Exam Narrative: General: well appearing, appears stated age. HEENT: normocephalic, atraumatic. Mucous membranes moist. EOMI, PERRLA, bilateral sclera anicteric, no conjunctival injection. Neck supple without JVD, lymphadenopathy, or bruit. Respiratory: clear bilaterally. No rales/rhonic/wheezes. Cardiovascular: Regular rate and rhythm, normal S1-S2. No murmurs, rubs, or clicks. PMI is nondisplaced, capillary refill less than 3 second. Abdomen: Soft, round, no pulsatile masses, nondistended and nontender. No rebound, no guarding. Bowel sounds present to all four quadrants. No high pitch or tinkling sounds, resonant to percussion. Extremities: No cyanosis, clubbing, or edema present. Pulses are palpable 2/2. Active ROM to all four extremities. Neuro: Alert and orientated x 4. PERRLA. Cranial nerves 2-12 intact without focal deficit. Skin: Warm, dry, and intact, without rash, erythema, or lesion. Psych: pleasant, cooperative, normal speech, normal affect, no hallucinations, no dysarthia H&P: Results Labs Labs: Short CBC 03/25/25 03/26/25 Range/Units 23:18 06:33 WBC 4.4 L 7.5 (4.5-10.0) K/mm3 Hgb 14.6 13.7 L (14.0-18.0) g/dL Hct 45.5 42.7 (42.0-52.0) % Plt Count 192 184 (150-375) k/mm3 BMP 03/25/25 03/26/25 23:18 06:33 Sodium 136 L 136 L Potassium 3.9 3.9 Chloride 105 107 Carbon Dioxide 24 24 BUN 17 15 Creatinine 1.30 1.10 Glucose 129 H 79 Calcium 9.7 9.2 Liver Function 03/25/25 Range/Units 23:18 Total Bilirubin 0.6 (0.2-1.3) mg/dL AST 41 (17-59) U/L ALT 30 (6-50) U/L Alkaline Phosphatase 88 (38-126) U/L Albumin 3.9 (3.5-5.1) g/dL Urine 03/25/25 Range/Units 23:51 Urine Color Yellow (Yellow) Urine Appearance Clear (Clear) Urine pH 5.5 (5.0-9.0) Ur Specific [place] 1.027 (1.001-1.035) Urine Protein 2+ H (Negative) mg/dL Urine Glucose (UA) Negative (Negative) mg/dL Assessment and Plan Assessment and plan (1) First time seizure: Code(s): R56.9 - Unspecified convulsions Status: Acute Assessment and Plan: Patient given several doses loading Keppra Neurology consulted pending recommendations MRI pending read EEG pending read Keppra b.i.d. (2) Hypertension: Code(s): I10 - Essential (primary) hypertension Status: Acute Assessment and Plan: Patient does not appear to be on medication Blood pressure is within normal limits (3) Hyperlipidemia: Code(s): E78.5 - Hyperlipidemia, unspecified Status: Acute Assessment and Plan: Continue Crestor Quality VTE Prophylaxis VTE prophylaxis: mechanical ordered and pharmacologic ordered Hospitalist MIPS Advance Care Plan I have confirmed that the patient's Advanced Care Plan is present, code status is documented, or surrogate decision maker is listed in patient medical record.: Yes Medication Reconciliation I have utilized all available resources to obtain, update and review the patients current medications (includes all prescriptions, OTC, herbals, cannabis, and nutritional supplements).: Yes
[2025-03-26] MEDS: TIMOLOL MALEATE 0.5% OP SOLN 5 ML BOTTLE 1 DROP EACH EYE ×2 (11:50→18:06)
--- NOTE | 2025-03-26 15:55 | PC.NURSE ---
This patient, Yuriy Cheng, was transferred to [[facility] ] on 03/26/25 at 1555. Personal belongings sent with patient. Report given to [ANNETTA Frederick @ [phone] ]. Appropriate documentation sent with patient. Meche, , updated with patient's transfer to [facility].
[2025-03-26] MEDS: ROSUVASTATIN 10 MG TABLET PO (21:40)
[2025-03-26] MEDS: LATANOPROST 0.005% OP SOLN 2.5 ML BTL 1 DROP EACH EYE (21:40)
[2025-03-26] MEDS: DOXAZOSIN MESYLATE 4 MG TABLET PO (21:40)
[2025-03-26] MEDS: levETIRAcetam Tablet 250 MG, levETIRAcetam Tablet 500 MG 750 MG PO (21:40)
[2025-03-26] MEDS: METOPROLOL SUCCINATE EXT REL 50 MG TABCR PO (21:41)
[2025-03-27 06:00] VITALS: BP 113/60; PULSE 57; RESP 18; TEMP 36.7; O2SAT 100
[2025-03-27 06:12] LABS: Hematocrit 43.8 % (42.0-52.0); Hemoglobin 13.6 g/dL (14.0-18.0); Mean Corpuscular HGB Conc 31.1 g/dl (32-36); Mean Corpuscular Hemoglobin 28.6 pg (26-34); Mean Corpuscular Volume 92.2 fl (80-100); Platelet Count Result 164 k/mm3 (150-375); Red Blood Count 4.75 M/mm3 (4.6-6.20); White Blood Count 4.9 K/mm3 (4.5-10.0)
[2025-03-27 06:53] LABS: Anion Gap 7 mmol/L (4-12); Blood Urea Nitrogen 10 mg/dL (9-20); Calcium 9.3 mg/dL (8.4-10.2); Carbon Dioxide 20 mmol/L (22-30); Chloride 109 mmol/L (98-107); Estimated CRCL calculation 66 ml/min; Estimated Glomerular Filt Rate > 60; Glucose 77 mg/dL (65-110); Potassium 3.9 mmol/L (3.4-5.0); Sodium 136 mmol/L (137-145)
--- NOTE | 2025-03-27 07:54 | P.PNIM_ITS ---
Progress Note: A&P Assessment and Plan (1) First time seizure: Code(s): R56.9 - Unspecified convulsions Status: Acute Assessment and Plan: Patient given several doses loading Keppra Neurology consulted pending recommendations MRI pending read EEG pending read Keppra b.i.d. (2) Hypertension: Code(s): I10 - Essential (primary) hypertension Status: Acute Assessment and Plan: Patient does not appear to be on medication Blood pressure is within normal limits (3) Hyperlipidemia: Code(s): E78.5 - Hyperlipidemia, unspecified Status: Acute Assessment and Plan: Continue Crestor Subjective Date/time seen: 03/27/25 07:54 Review of Systems Review of Systems: 12 systems were reviewed and are negativ e except for as per HPI. Exam Narrative: General: well appearing, appears stated age. HEENT: normocephalic, atraumatic. Mucous membranes moist. EOMI, PERRLA, bilateral sclera anicteric, no conjunctival injection. Neck supple without JVD, lymphadenopathy, or bruit. Respiratory: clear bilaterally. No rales/rhonic/wheezes. Cardiovascular: Regular rate and rhythm, normal S1-S2. No murmurs, rubs, or clicks. PMI is nondisplaced, capillary refill less than 3 second. Abdomen: Soft, round, no pulsatile masses, nondistended and nontender. No rebound, no guarding. Bowel sounds present to all four quadrants. No high pitch or tinkling sounds, resonant to percussion. Extremities: No cyanosis, clubbing, or edema present. Pulses are palpable 2/2. Active ROM to all four extremities. Neuro: Alert and orientated x 4. PERRLA. Cranial nerves 2-12 intact without focal deficit. Skin: Warm, dry, and intact, without rash, erythema, or lesion. Psych: pleasant, cooperative, normal speech, normal affect, no hallucinations, no dysarthia Objective Data Vital Signs Vital Signs: Vital Signs - 24 hr 03/26/25 08:00 03/26/25 08:00 03/26/25 08:00 Temperature 98.1 F Pulse Rate 59 L 59 L 58 L Respiratory Rate 15 15 Blood Pressure 110/59 L Pulse Oximetry 98 98 Oxygen Delivery Room Air 03/26/25 10:00 03/26/25 12:00 03/26/25 12:00 Temperature 98.1 F Pulse Rate 86 58 L 58 L Respiratory Rate 15 15 Blood Pressure 118/64 Pulse Oximetry 98 98 Oxygen Delivery Room Air 03/26/25 12:00 03/26/25 16:00 03/26/25 20:00 Temperature 98.3 F Pulse Rate 72 61 Respiratory Rate 16 Blood Pressure 112/71 Pulse Oximetry 100 Oxygen Delivery Room Air 03/26/25 21:28 03/26/25 21:41 03/27/25 06:00 Temperature 98.1 F 98.1 F Pulse Rate 59 L 82 57 L Respiratory Rate 20 18 Blood Pressure 113/68 113/60 Pulse Oximetry 100 100 Oxygen Delivery Intake/Output Intake/Output: Intake & Output 03/24/25 03/25/25 03/26/25 03/27/25 23:59 23:59 23:59 23:59 Intake Total 1880 100 Output Total 300 225 Balance 1580 -125 Meds/Results Medications: Active Medications Generic Name Dose Route Start Last Admin Trade Name Freq PRN Reason Stop Dose Admin Acetaminophen 650 mg 03/26/25 02:20 Acetaminophen 325 Mg Tablet PO Q4H PRN Mild Pain (1-3) or Fever Brimonidine Tartrate 1 drop 03/26/25 09:00 03/26/25 18:07 Brimonidine Tartrate 0.2% Op Soln 5 Ml Btl EACH EYE 1 drop BID CARIDAD Administration Doxazosin Mesylate 4 mg 03/26/25 21:00 03/26/25 21:40 Doxazosin Mesylate 4 Mg Tablet PO 4 mg HS CARIDAD Administration Enoxaparin Sodium 40 mg 03/27/25 09:00 Enoxaparin 40 Mg/0.4 Ml Syringe SUB-Q DAILY CARIDAD Latanoprost 1 drop 03/26/25 21:00 03/26/25 21:40 Latanoprost 0.005% Op Soln 2.5 Ml Btl EACH EYE 1 drop HS CARIDAD Administration Levetiracetam 250 mg/ 750 mg 03/26/25 21:00 03/26/25 21:40 Levetiracetam 500 mg PO 750 mg Q12HR CARIDAD Administration Metoprolol Succinate 50 mg 03/26/25 21:00 03/26/25 21:41 Metoprolol Succinate Ext Rel 50 Mg Tabcr PO 50 mg HS CARIDAD Administration Midazolam HCl 5 mg 03/26/25 02:20 Midazolam Hcl (*Crx) 2 Mg/2 Ml Vial IV PUSH ONCE PRN Seizures Ondansetron HCl 4 mg 03/26/25 02:20 Ondansetron Inj 4 Mg/2 Ml Vial IV PUSH Q4H PRN Nausea Rosuvastatin Calcium 10 mg 03/26/25 21:00 03/26/25 21:40 Rosuvastatin 10 Mg Tablet PO 10 mg HS CARIDAD Administration Timolol Maleate 1 drop 03/26/25 09:00 03/26/25 18:06 Timolol Maleate 0.5% Op Soln 5 Ml Bottle EACH EYE 1 drop BID CARIDAD Administration Radiology Results: ITS Impressions Head CT 03/26/25 06:39 IMPRESSION: 1. No acute intracranial findings. Brain MRI 03/26/25 15:19 IMPRESSION: 1. No evidence of acute ischemia, chronic ischemic demyelinating lesions. 2. No abnormal enhancement. No evidence of ventriculomegaly or midline shift. 3. Moderate inflammatory changes of multiple sinuses on both sides. Labs Labs: Laboratory Results - last 24 hr 03/27/25 05:45 WBC 4.9 RBC 4.75 Hgb 13.6 L Hct 43.8 MCV 92.2 MCH 28.6 MCHC 31.1 L RDW 13.6 Plt Count 164 MPV 9.9 Sodium 136 L Potassium 3.9 Chloride 109 H Carbon Dioxide 20 L Anion Gap 7 BUN 10 D Creatinine 0.95 Estim Creat Clear Calc 66 Estimated GFR > 60 Glucose 77 Calcium 9.3 Quality VTE Prophylaxis VTE prophylaxis: mechanical ordered and pharmacologic ordered
[2025-03-27] MEDS: levETIRAcetam Tablet 250 MG, levETIRAcetam Tablet 500 MG 750 MG PO (09:23)
[2025-03-27] MEDS: ENOXAPARIN 40 MG/0.4 ML SYRINGE SUB-Q (09:23)
[2025-03-27] MEDS: BRIMONIDINE TARTRATE 0.2% OP SOLN 5 ML BTL 1 DROP EACH EYE (09:23)
[2025-03-27] MEDS: TIMOLOL MALEATE 0.5% OP SOLN 5 ML BOTTLE 1 DROP EACH EYE (09:24)
--- NOTE | 2025-03-27 13:12 | WPDNEUROLOGY ---
Neurology EEG Report General Information Date of Study: 03/26/25 TEST Electroencephalogram DIAGNOSIS seizure disorder CONDITION OF RECORDING bedside record EEG NUMBER [id number] CLINICAL HISTORY new onset seizure disorder. Patient was found in the bed when his found him shaking and making weird noises. In the emergency room he has had further seizures and total of 3 seizures on the day of admission. Mental status returned back to normal afterwards. EEG DESCRIPTION The background activity consists of poorly formed mixed frequency theta and beta activity. There is no significant anteroposterior gradient. Occasionally frontal intermittent rhythmic delta activity was seen. Patient did not progress to stage 2 sleep. Hyperventilation or photic stimulation are not performed. IMPRESSION This is an abnormal EEG due to presence of a diffuse background slowing however no focal or paroxysmal epileptiform abnormalities seen.
--- NOTE | 2025-03-27 14:28 | P.DS_ITS ---
DS: Admitting Diagnosis Discharge Date 03/27/2025 Admitting Diagnosis First time seizure Hypertension Hyperlipidemia DS: Discharge Diagnosis Discharge Diagnosis (1) First time seizure: Code(s): R56.9 - Unspecified convulsions Status: Acute (2) Hypertension: Code(s): I10 - Essential (primary) hypertension Status: Acute (3) Hyperlipidemia: Code(s): E78.5 - Hyperlipidemia, unspecified Status: Acute DS: Summary Hospital Course Reason for hospitalization: seizure Hospital Course: First time seizure -Patient given several doses loading Keppra in the ER -Neurology consulted -MRI bran shows chronic white matter changes -EEG showed diffuse background slowing but no focal or paroxysmal epileptiform abnormalities -Keppra 750 mg b.i.d. -patient instructed no driving for 6 months -follow up with Dr. Ferris in the next 6 months as an outpatient -Dr. Ferris suggested a carotid doppler, this can be completed as an outpatient, patient to ask his PCP to order this test Hypertension -Patient does not appear to be on medication -Blood pressure is within normal limits Hyperlipidemia -continue crestor Time Spent with Patient Time attestation: Total time spent providing and/or coordinating discharge services: 25 Minutes Exam Narrative: General: well appearing, appears stated age. HEENT: normocephalic, atraumatic. Mucous membranes moist. EOMI, PERRLA, bilateral sclera anicteric, no conjunctival injection. Neck supple Respiratory: clear bilaterally. No rales/rhonic/wheezes. Cardiovascular: Regular rate and rhythm, normal S1-S2. No murmurs, rubs, or clicks. Abdomen: Soft, round, no pulsatile masses, nondistended and nontender. No rebound, no guarding. Bowel sounds present to all four quadrants. Extremities: No cyanosis, clubbing, or edema present. Active ROM to all four extremities. Neuro: Alert and orientated x 4. PERRLA. Cranial nerves 2-12 intact without focal deficit. Skin: Warm, dry, and intact, without rash, erythema, or lesion. Psych: pleasant, cooperative, normal speech, normal affect, no hallucinations, no dysarthia DS: Data Data Completed and Pending Completed studies during hospitalization: Neurology EEG Report General Information Date of Study: 03/26/25 TEST Electroencephalogram DIAGNOSIS seizure disorder CONDITION OF RECORDING bedside record EEG NUMBER [id number] CLINICAL HISTORY new onset seizure disorder. Patient was found in the bed when his found him shaking and making weird noises. In the emergency room he has had further seizures and total of 3 seizures on the day of admission. Mental status returned back to normal afterwards. EEG DESCRIPTION The background activity consists of poorly formed mixed frequency theta and beta activity. There is no significant anteroposterior gradient. Occasionally frontal intermittent rhythmic delta activity was seen. Patient did not progress to stage 2 sleep. Hyperventilation or photic stimulation are not performed. IMPRESSION This is an abnormal EEG due to presence of a diffuse background slowing however no focal or paroxysmal epileptiform abnormalities seen. Please be advised this is a medical document. It is intended for [id number] communication. It is written in medical language and may contain unfamiliar abbreviations or verbiage. Medical documents are intended to carry relevant information, facts as evident, and the clinical opinion of the practitioner at the time of the encounter. This report may have been done utilizing a voice recognition system. Attempts have been made to correct errors. However, there may be uncorrected grammatical, spelling, and recognition errors present. The file time of this note does not necessarily represent the time the patient was seen. Report Initialized date/time: Tosha Ferris MD 03/27/25 / 1314 Electronically signed by: Tosha Ferris MD 03/27/25 1314 Labs on day of discharge: Labs from last 24 hours 03/27/25 05:45 WBC 4.9 RBC 4.75 Hgb 13.6 L Hct 43.8 MCV 92.2 MCH 28.6 MCHC 31.1 L RDW 13.6 Plt Count 164 MPV 9.9 Sodium 136 L Potassium 3.9 Chloride 109 H Carbon Dioxide 20 L Anion Gap 7 BUN 10 D Creatinine 0.95 Estim Creat Clear Calc 66 Estimated GFR > 60 Glucose 77 Calcium 9.3 Imaging Radiologist's impression: Ordering Physician: Rafy Maxwell MD Date of Service: 03/26/25 Procedure(s): CT brain wo con Accession Number(s): [id number] cc: Kd, Lance AWAN ([place]); Ehsan Zamora MD; Rafy Maxwell MD~ CT HEAD NON-CONTRAST Clinical History: seizures Comparison: None Technique: Unenhanced axial images skull base to vertex Coronal, sagittal reformats CT images acquired with automatic exposure control for dose reduction DLP: 681 mGy-cm Findings: Sulci, ventricles: Unremarkable. No intracerebral hemorrhage. No evidence acute territorial infarct. No mass effect, midline shift. Bony calvarium intact. Visualized paranasal sinuses: Mild maxillary mucosal thickening. Mild ethmoid disease. Mastoid air cells: Clear. IMPRESSION: 1. No acute intracranial findings. Reviewed, dictated and finalized at location [facility] Ordering Physician: Rafy Maxwell MD Date of Service: 03/26/25 Procedure(s): MR brain/brain stem wo/w con Accession Number(s): [id number] cc: Rosa M, Lance AWAN ([place]); Ehsan Zamora MD; Rafy Mxawell MD~ EXAMINATION: Modified brain with and without contrast: DATE: 03/26/2025 INDICATION: 74 year-old with seizure. TECHNIQUE: Axial, coronal and sagittal images including postcontrast images with 10 mL IV contrast were obtained. COMPARISON: CT head without contrast dated 03/26/2025. FINDINGS: No focal areas of acute ischemia on diffusion sequence. No evidence of intracranial bleed on T2*gradient sequence. No evidence of ventriculomegaly or midline shift. Major vascular structures of [place] are patent. No abnormal enhancement on postcontrast study. Normal pituitary gland. Inflammatory changes of ethmoid and frontal sinuses and to a lesser degree maxillary sinuses history rule out sinusitis. IMPRESSION: 1. No evidence of acute ischemia, chronic ischemic demyelinating lesions. 2. No abnormal enhancement. No evidence of ventriculomegaly or midline shift. 3. Moderate inflammatory changes of multiple sinuses on both sides. Reviewed, dictated and finalized at location [facility] Discharge Plan Discharge Attending physician on discharge: Nathaniel Blunt Consulting providers: Tosha Ferris; Pam Wilcox; Josselyn Humphries; Mat Bernal; Jose D Harmon; Chris Vallejo Discharging Clinician: Josselyn Humphries Patient Disposition: Home Activity: no driving and as tolerated Diet: heart healthy Discharge Instructions: NO driving for 6 months. Please call your PCP and ask for them to order carotid doppler's to be completed as an outpatient. Please have this completed before your follow up appointment with neurology. Patient Instructions: Antibiotic Form, New-Onset Seizure in Adults (GEN) Patient Language: Syriac Stand Alone Forms: General Discharge Information Follow-up/Referrals: Tosha Ferris MD [Physician, Neurology] - Call for Appointment Referral Note: follow up in 2 months Discharge Medications: New levetiracetam 250 mg Tablet 750 mg PO Q12HR Qty: 60 0RF Continued metoprolol succinate 50 mg tablet extended release 24 hr 50 mg PO HS brimonidine 0.2 % drops 1 drp EACH EYE BID doxazosin [Cardura] 4 mg tablet 4 mg PO HS rosuvastatin 10 mg tablet 10 mg PO HS timolol maleate 0.5 % drops 1 drp EACH EYE BID latanoprost 0.005 % drops 1 drp EACH EYE HS Other Ambulatory Orders: US carotid duplex BI (Routine) Timeframe: 1 Week Location: Determined by Patient Ordered By: Tosha Ferris Date of admission: 03/26/25 02:21 Primary Care Provider: Kd,Lance ([facility]) Admitting Provider: Steve Zamora Attending physician on admission: Nathaniel Blunt Condition: Stable Quality VTE Prophylaxis VTE prophylaxis: mechanical ordered and pharmacologic ordered
--- NOTE | 2025-03-27 14:56 | WPDNEURCNPN ---
Assessment and Plan Assessment and plan (1) Seizure disorder: Code(s): G40.909 - Epilepsy, unspecified, not intractable, without status epilepticus Status: Acute (2) Diffuse cerebrovascular disease: Code(s): I67.9 - Cerebrovascular disease, unspecified Status: Acute Assessment and Plan: MRI of the brain shows moderate chronic white matter changes. Plan The patient had 3 spells on the day of admission 1 of them was at home in bed. There is no history of recent febrile illness or head trauma or any other precipitating events. Based upon the overall evaluation out suggest to continue the Keppra 750 mg twice a day. Also suggest a carotid Doppler study in view of the chronic white matter changes noted MRI of the brain. I shall be glad to follow of this patient in my office in 2-3 months time. he should be advised to defer driving for next 6 months time. I explained this to the patient in detail and also to the hospitalist. He is also advised that if he has any further seizure-like spells let me know since the dosing of the medication can vary widely in different individuals. Consult date: 03/27/25 HPI: Yuriy Cheng is a 74 year old male For neurologic evaluation. The patient has had a seizure observed by his in bed. He was postictal for a while. Thereafter he has had 2 more seizures in emergency room. MRI of the brain has been performed which shows chronic white matter changes and evidence for sinusitis. Patient was given brain dose of the Keppra and followed by 750 mg twice a day for maintenance therapy. EEG was performed which shows diffuse background slowing but no focal or paroxysmal epileptiform abnormalities seen. Does not have any history of prior stroke or seizures. The patient states that he does not sleep very well on account of frequent need to wake up due to prostate problems. Was wondering if the sleep deprivation can cause seizures. There was some discussion about it that yes indeed it appears he can be a trigger but usually the not the cause with history given above. Patient denies any other symptoms at this time. Review of Systems Review of Systems: All systems reviewed & are unremarkable except as noted in HPI and below PMFSH Past Medical History Medical History (Updated 03/27/25 @ 15:00 by Tosha Ferris MD) Diffuse cerebrovascular disease Seizure disorder Hypertension Hyperlipidemia Social History Social History Smoking status: Never smoker Second hand tobacco smoke exposure: Yes Alcohol intake: never Substance use: never Substance use type: does not use Lack of Transportation: No Lack of Food: Never True Current Housing: I Have Housing Concerned About Future Housing: No Difficulty Paying Gas/Electric Bills: No Difficulty Paying for Meds: No Currently Unemployed: No Education: Bachelor's Degree Difficulty w/ Childcare or Family Care: No Spiritual care concerns: No Meds Home Medications and Allergies Home Medications ?Medication ?Instructions ?Recorded ?Confirmed ?Type brimonidine 0.2 % eye drops 1 drp EACH EYE BID 03/25/25 03/26/25 History doxazosin 4 mg tablet (Cardura) 4 mg PO HS 03/25/25 03/26/25 History metoprolol succinate 50 mg 50 mg PO HS 03/25/25 03/26/25 History tablet,extended release 24 hr rosuvastatin 10 mg tablet 10 mg PO HS 03/25/25 03/26/25 History latanoprost 0.005 % eye drops 1 drp EACH EYE HS 03/26/25 03/26/25 History timolol maleate 0.5 % eye drops 1 drp EACH EYE BID 03/26/25 03/26/25 History levetiracetam 250 mg tablet 750 mg (3 x 250 mg) PO Q12HR #60 03/27/25 Rx tabs Allergies Allergy/AdvReac Type Severity Reaction Status Date / Time No Known Allergies Allergy Verified 03/26/25 07:38 Vital Signs Vital Signs - 24 hr 03/26/25 16:00 03/26/25 20:00 03/26/25 21:28 Temperature 98.3 F 98.1 F Pulse Rate 61 59 L Respiratory Rate 16 20 Blood Pressure 112/71 113/68 Pulse Oximetry 100 100 Oxygen Delivery Room Air 03/26/25 21:41 03/27/25 06:00 Temperature 98.1 F Pulse Rate 82 57 L Respiratory Rate 18 Blood Pressure 113/60 Pulse Oximetry 100 Oxygen Delivery Exam Const: General: cooperative and no acute distress HENMT: Head: atraumatic Mouth: Yes oropharynx normal Eyes: Alignment and Position: alignment normal and position normal EOM: EOMs intact bilaterally Neck: Neck: normal visual inspection and supple Resp: Effort & Inspection: normal respiratory effort Cardio: Heart sounds: S1 normal heart sound present and S2 normal heart sound present Skin: General skin exam: normal color Neuro: Cranial nerves: Yes CN's II-XII intact bilaterally, Yes facial symmetry and Yes Midline tongue present Cognition (Neuro): normal cognition Speech: normal speech Sensory Exam: normal sensation Coordination: [id number] test normal and Normal rapid alternating movements of the distal upper extremity present (Neuro) Extrem: General: normal to inspection Psych: Appearance: well kempt Mental Status: mental status grossly normal Speech and movement: Normal speech and movement present Affect: normal affect Thought process: Normal thought process present Thought content: Yes Normal thought content present Insight: Good insight present (Psych) Judgement: Good judgement present (Psych) Results Labs 03/27/25 05:45 03/27/25 05:45 Labs: Short CBC 03/27/25 Range/Units 05:45 WBC 4.9 (4.5-10.0) K/mm3 Hgb 13.6 L (14.0-18.0) g/dL Hct 43.8 (42.0-52.0) % Plt Count 164 (150-375) k/mm3 [facility] 03/27/25 05:45 Sodium 136 L Potassium 3.9 Chloride 109 H Carbon Dioxide 20 L BUN 10 D Creatinine 0.95 Glucose 77 Calcium 9.3
[2025-03-27 15:07] VITALS: BP 127/67; PULSE 63; RESP 18; TEMP 36.5; O2SAT 100
== END 2025-03-27 16:00 | disposition home or self-care (01) ==
LOC: ANHED 03-26 00:43 → ANHIMU 03-26 04:43 → ANHICU 03-26 15:53 → ANH3MEDSUR 03-27 13:49 → ANHICU 03-29 13:27 → ANHIMU 03-29 13:27
PROVIDERS: Nurse Practitioner; Nurse Practitioner Gerontology; Admitting Provider Internal Medicine; Emergency Provider Student in an Organized Health Care Education/Training Program; PCP Internal Medicine; Visit Provider Internal Medicine
DX: G40.909 Epilepsy, unspecified, not intractable, without status epilepticus (principal); I67.9 Cerebrovascular disease, unspecified; J32.9 Chronic sinusitis, unspecified; I10 Essential (primary) hypertension; E78.5 Hyperlipidemia, unspecified
CPT/HCPCS: 36415; 70450; 70553; 80048; 80053; 80143; 80179; 80307; 81001; 82077; 83605; 85025; 85027; 85610; 85730; 93005; 95816; 96361; 96365; 96372; 96375; 96376; 99285; A9270; A9577; G0378; J1650; J1953; J2250; J3360; J7030